=== PATIENT | female | born 1940 | race Caucasian/White ===

== ENCOUNTER → 2016-02-29 | Outpatient (CLI) | payer OTHER, MEDICARE ==
[~2016-02-29] MED LIST: ACET-1138 PO; ACET1TAB84 PO; ASPEC81 PO; ASPI81TA28 PO; FRRG PO; LEVO125T72 PO; OMEG10007 PO; OXYSR10 PO; PRLSR20 PO; RXC5 PO; SALI1SPR15 NAE; SIMV40TA2 PO; VALS160T58 PO
[2016-02-29 13:48] LABS: BASO % 0.5 %; BASO ABS # 0.02 K/uL (0-0.2); COMPLETE YES; HEMATOCRIT 41.1 % (37-47); IG% 0.2 %; LYMPH % 29.3 %; LYMPH ABS # 1.18 K/uL (1.2-3.4); MEAN CELL VOLUME 89.2 fL (80-100); MEAN CORPUSCULAR HEMOGLOBIN 30.2 pg (25-34); MEAN CORPUSCULAR HGB CONC 33.8 g/dl (32-36); MEAN PLATELET VOLUME 9.5 fL (7.4-10.4); MONO % 8.4 %; NEUT % 57.6 %; PLATELET COUNT 162 K/uL (130-400); RED BLOOD COUNT 4.61 M/uL (4.2-5.4); WHITE BLOOD COUNT 4.03 K/uL (4.8-10.8)
[2016-02-29 14:01] LABS: URINE APPEARANCE CLOUDY (CLEAR); URINE BILIRUBIN NEG (NEG); URINE COLOR DK YELLOW; URINE EPITHELIAL CELL AUTO >30 /lpf (0-5); URINE NITRITE NEG (NEG); URINE PH 6.5 (4.5-7.5); URINE SPECIFIC GRAVITY 1.026 (1.000-1.030); UROBILINOGEN NEG (NEG)
[2016-02-29 14:09] LABS: MANUAL MICROSCOPIC REQUIRED? NO; REVIEW REQ? YES
[2016-02-29 14:18] LABS: ESTIMATED AVERAGE GLUCOSE 117 mg/dl; HA1C FLAG Normal (Normal)
[2016-02-29 14:19] LABS: URINE MUCUS PRESENT (NONE PRSENT)
[2016-02-29 14:20] LABS: ALT/SGPT 24 U/L (12-78); AST/SGOT 9 U/L (15-37); BLOOD UREA NITROGEN 13 mg/dl (7-18); BUN/CREATININE RATIO 17.5 (10-20); CALCIUM 9.2 mg/dl (8.5-10.1); CARBON DIOXIDE 28 mmol/L (21-32); CHLORIDE 104 mmol/L (98-107); CREATININE 0.73 mg/dl (0.60-1.20); GLUCOSE 93 mg/dl (70-99); POTASSIUM 3.8 mmol/L (3.5-5.1); SODIUM 141 mmol/L (136-145)
[2016-02-29 14:33] LABS: CHOLESTEROL 198 mg/dl (0-200); CHOLESTEROL/HDL RATIO 2.9; HDL CHOLESTEROL 69 mg/dl; LDL CHOLESTEROL CALCULATED 94 mg/dl; TRIGLYCERIDES 175 mg/dl (0-150); VERY LOW DENSITY LIPOPROT CALC 35 mg/dl
--- NOTE | 2016-03-04 13:14 | CODING QUERY MEDICAL NECESSITY ---
SUPPORTING DIAGNOSIS NEEDED A supporting diagnosis is required for the test/procedure performed on this patient in order for us to be reimbursed by the patient's insurance. Please provide a supporting diagnosis for the following test/procedure listed below next to the test name along with your signature. *If there is no additional diagnosis for this patient that would support the following test/procedure please document that below next to the test/procedure. Test(s)/Procedure(s) that require a supporting diagnosis: DOS 02/28 * Hba1c DIAGNOSIS: Provider Signature: Date: Thank you Lakshmi Acuña Health Information Management Once completed, please kindly fax back to [phone] For questions please call [phone]
== END | disposition home or self-care (01) ==
LOC: C.LABBC 10:21
PROVIDERS: ATTEND Internal Medicine
DX: E78.00 Pure hypercholesterolemia, unspecified (principal); R73.9 Hyperglycemia, unspecified

== ENCOUNTER 2016-06-19 09:18 | Inpatient (IN) | payer OTHER, MEDICARE ==
[2016-05-14 13:28] VITALS: BMI 37.0
--- NOTE | 2016-05-14 14:04 | PAT Medication Instructions ---
Service Date May 14, 2016. Current Home Medication List Acetaminophen (Tylenol Arthritis Ext Rel), 1,300 MG PO TID PRN for RN Aspirin (Aspirin Ec), 81 MG PO QAM Fish Oil ([place]-3), 1 CAP PO TID Levothyroxine Sodium (Synthroid), 125 MCG PO QAM Omeprazole (Prilosec), 20 MG PO QAM Saline (Saline Nasal [place] ), 1-2 SPRY BERNARDA HS PRN for RN Simvastatin (Zocor), 40 MG PO HS Valsartan/Hctz (Diovan Hct 160MG/12.5MG), 1 TAB PO QAM Medication Instructions For Your Scheduled Surgery - Hold the following medications 2 weeks prior to surgery: Fish Oil ([place]-3), 1 CAP PO TID - Hold the following medications the morning of surgery: Valsartan/Hctz (Diovan Hct 160MG/12.5MG), 1 TAB PO QAM - Take the following medications the morning of surgery with a sip of water: Levothyroxine Sodium (Synthroid), 125 MCG PO QAM Omeprazole (Prilosec), 20 MG PO QAM Acetaminophen (Tylenol Arthritis Ext Rel), 1,300 MG PO TID PRN for RN Aspirin (Aspirin Ec), 81 MG PO QAM - Take the following medications as scheduled the night before surgery: Simvastatin (Zocor), 40 MG PO HS Saline (Saline Nasal [place] ), 1-2 SPRY BERNARDA HS PRN for RN Acetaminophen (Tylenol Arthritis Ext Rel), 1,300 MG PO TID PRN for RN If you have any questions please call us at [phone] or [phone] ( Faustina) or [phone]
[2016-05-14 15:05] LABS: BASO % 0.6 %; BASO ABS # 0.03 K/uL (0-0.2); COMPLETE YES; EOS % 1.7 %; HEMATOCRIT 38.3 % (37-47); IG% 0.2 %; LYMPH % 31.5 %; LYMPH ABS # 1.65 K/uL (1.2-3.4); MEAN CELL VOLUME 90.8 fL (80-100); MEAN CORPUSCULAR HGB CONC 34.2 g/dl (32-36); MEAN PLATELET VOLUME 9.5 fL (7.4-10.4); MONO % 5.2 %; NEUT % 60.8 %; PLATELET COUNT 152 K/uL (130-400); RED BLOOD COUNT 4.22 M/uL (4.2-5.4); WHITE BLOOD COUNT 5.23 K/uL (4.8-10.8)
--- NOTE | 2016-05-14 15:06 | DIAGNOSTIC IMAGING REPORT ---
CHEST PREADMISSION(PA/LAT) CLINICAL HISTORY: PAT preoperative evaluation COMPARISON STUDY: No previous studies for comparison. FINDINGS: The bones soft tissues and hemidiaphragms are normal. The cardiomediastinal silhouette is normal. The lungs are clear. The pulmonary vasculature is normal. IMPRESSION: Negative chest. Electronically signed by: Los Porter M.D. 05/14/2016 3:04 PM Dictated Date/Time: 05/14/2016 3:03 PM
[2016-05-14 15:14] LABS: PROTHROMBIN TIME (PATIENT) 10.3 SECONDS (9.0-12.0)
[2016-05-14 15:26] LABS: BUN/CREATININE RATIO 25.8 (10-20); CALCIUM 9.3 mg/dl (8.5-10.1); CREATININE 0.73 mg/dl (0.60-1.20); POTASSIUM 3.7 mmol/L (3.5-5.1)
[2016-05-14 15:29] LABS: URINE APPEARANCE CLEAR (CLEAR); URINE BILIRUBIN NEG (NEG); URINE COLOR YELLOW; URINE EPITHELIAL CELL AUTO >30 /lpf (0-5); URINE NITRITE NEG (NEG); URINE SPECIFIC GRAVITY 1.032 (1.000-1.030); UROBILINOGEN NEG (NEG); ZZUR CULT IF INDIC CLEAN CATCH NO
[2016-05-14 15:35] LABS: MANUAL MICROSCOPIC REQUIRED? NO; REVIEW REQ? NO
[2016-05-15 06:13] LABS: ESTIMATED AVERAGE GLUCOSE 123 mg/dl; HA1C FLAG Normal (Normal)
--- NOTE | 2016-06-18 20:04 | HISTORY & PHYSICAL EXAMINATION ---
DATE OF ADMISSION: 06/19/2016 CHIEF COMPLAINT: Chronic right knee pain. HISTORY OF PRESENT ILLNESS: This is a 75-year-old female patient of Dr. Perry, complaining of chronic right knee pain, longstanding, now progressively getting worse. The patient has been diagnosed with end-stage osteoarthritis per clinical and radiographic exams. The patient has failed conservative treatment including anti-inflammatories, intraarticular injections, and the use of a wrap as needed. The patient has increased pain with weightbearing activities and her pain does interfere with her activities of daily living. PAST MEDICAL HISTORY: Hypertension, hypercholesterolemia, hypothyroidism, osteoarthritis, acid reflux, hiatal hernia. SOCIAL HISTORY: Nonsmoker, nondrinker. SURGICAL HISTORY: Hysterectomy, cholecystectomy, hernia repair, left knee meniscal repair, both cataracts. FAMILY HISTORY: Noncontributory. REVIEW OF SYSTEMS: The patient complains of chronic right knee pain. Otherwise, denies any shortness of breath, chest pain, nausea, vomiting or any other joint complaints. MEDICATIONS: Omeprazole 20 mg daily, valsartan 160 mg/hydrochlorothiazide 12.5 mg daily, aspirin 81 mg daily, Tylenol Arthritis 650 mg every 12 hours p.r.n., Synthroid 125 mcg daily, simvastatin 40 mg daily, fish oil daily. ALLERGIES: No known drug allergies. PHYSICAL EXAMINATION: GENERAL: Well-developed, well-nourished 75-year-old female in no acute distress. She is alert and oriented x3 and pleasant. HEENT: Normocephalic, atraumatic. Extraocular motions are intact. Pupils are equal and reactive to light. HEART: Regular rate and rhythm. No murmurs are appreciated. LUNGS: Clear. ABDOMEN: Soft and nontender, bowel sounds present. EXTREMITIES: Right knee reveals range of motion of 0-125 degrees with a varus deformity. She has a mild effusion with 5/5 strength. She has medial joint line tenderness. NEUROLOGIC: Neurovascularly, she is intact in her right lower extremity. DIAGNOSES: 1. Right knee end-stage osteoarthritis. 2. Hypertension. 3. Hypercholesterolemia. 4. Hypothyroidism. 5. Osteoarthritis. 6. Acid reflux. 7. Hiatal hernia. 8. Obesity. PLAN: The patient was advised of her diagnosis. Indications, risks, benefits, and postop course have all been reviewed. The patient wished to proceed with right total knee arthroplasty. Necessary consent forms, preoperative testing and clearances will be obtained.
[2016-06-19] VITALS (9 sets, daily range): BP systolic 124–150; BP diastolic 75–92; PULSE 72–94; TEMP 36.3–36.8; O2SAT 93–100; Ht 167.6 cm; Wt 105.6 kg
[~2016-06-19] VITALS: Ht 167.6 cm; Wt 105.6 kg
[~2016-06-19 09:18] MED LIST changes: -ACET-1138 PO; +ACETAMINOPHEN 500 MG TAB PO SCH; -ASPEC81 PO; +BUPIVACAINE 0.5 % 5 MG/1 ML PF 10ML VIAL ONE; +CEFAZOLIN 2000 MG/60 ML D5W 60 ML IV SCH; +CeleBREX 200 MG CAP PO SCH; +DEXAMETHASONE 4 MG TAB PO SCH; +FAMOTIDINE 20 MG TAB PO SCH; -FRRG PO; +GABAPENTIN 300 MG CAP PO SCH; +LACTATED RINGER'S 1000ML 1,000 ML IV SCH; +LACTATED RINGER'S 1000ML 500 ML IV ONE; +LACTATED RINGER'S 1000ML IV SCH; +METOCLOPRAMIDE HCL 10 MG TAB PO SCH; -OXYSR10 PO; +ROPIVACAINE 5MG/ML 30 ML 150 MG, BUPIVACAINE/EPINEPHR 0.5% MPF 30 ML, KETOROLAC TROMETH... INFIL SCH; -RXC5 PO
[2016-06-19] MEDS ORDERED: MIDAZOLAM HCL 1 MG/ML 2ML VIAL ONE ×2 (09:36)
--- NOTE | 2016-06-19 10:19 | History & Physical Bridge Note ---
H&P Re-Evaluation Bridge Note: I have examined the patient, reviewed the History & Physical and in the interval since the performance of the History & Physical I have noted the following changes of clinical significance: No changes noted
[2016-06-19] MEDS ORDERED: ATROPINE SULFATE 0.1 MG/ML 5ML SYR IV PRN (10:45)
[2016-06-19] MEDS ORDERED: EpHEDrine SULFATE INJ 50 MG/ML AMP IV PRN (10:45)
[2016-06-19] MEDS ORDERED: ONDANSETRON INJ 2 MG/ML 2 ML VIAL IV PRN ×2 (10:45→13:30)
[2016-06-19] MEDS ORDERED: FENTANYL CITRATE INJ 50 MCG/1 ML 2 ML VIAL IV PRN (10:45)
[2016-06-19] MEDS ORDERED: POVIDONE-IODINE OP SOLN 30 ML BTL ONE (11:11)
[2016-06-19] MEDS ORDERED: ORTHO JOINT ANESTHETIC ONE (11:11)
[2016-06-19] MEDS ORDERED: BACITRACIN 50000 UNIT VIAL ONE (11:11)
[2016-06-19] MEDS ORDERED: PROPOFOL IV EMULSION 10 MG/ML 20 ML VIAL IV ONE (11:46)
--- NOTE | 2016-06-19 12:59 | [facility] Operative Report ---
Operative Report Operative Date Jun 19, 2016. Pre-Operative Diagnosis Right knee end stage Osteoarthritis Post-Operative Diagnosis same Procedure(s) Performed right TKA Surgeon Dr. Rdz Summer Associate Surgeon(s) Sin Yang PA-C Estimated Blood Loss 5 cc Findings varus ,grade 4 medial compt. Specimens A: Right knee bone and tissue Drains 2 hemovac Anesthesia spinal and regional block and orthomix Complication(s) None Disposition Recovery Room / PACU Indications end stage bilateral kne djd I attest to the content of the Intraoperative Record and any orders documented therein. Any exceptions are noted below.
[2016-06-19] MEDS ORDERED: BISACODYL 10 MG SUPP PR PRN (13:30)
[2016-06-19] MEDS ORDERED: MAGNESIUM HYDROXIDE SUSP 30 ML UDC PO PRN (13:30)
[2016-06-19] MEDS ORDERED: SODIUM CHLORIDE 0.65% NA SOLN 45 ML (OCEAN) NAE PRN (13:30)
[2016-06-19] MEDS ORDERED: ALUMINUM/MAGNESIUM/SIMETH (MAALOX MAX) 30 ML UDC PO PRN (13:30)
[2016-06-19] MEDS ORDERED: OXYCODONE HCL IR 5 MG TAB (IMMEDIATE RELEASE) PO PRN (13:30)
[2016-06-19] MEDS ORDERED: MoRPHine SULFATE 2 MG/ML CARP IV PRN (13:30)
--- NOTE | 2016-06-19 13:47 | DIAGNOSTIC IMAGING REPORT ---
TWO VIEWS RIGHT KNEE CLINICAL HISTORY: Postoperative examination. FINDINGS: AP and crosstable lateral portable views of the right knee are obtained. A right knee arthroplasty is in near anatomic alignment. There has been undersurface remodeling of the patella. No acute fracture is seen. There are expected postoperative changes around the knee including skin clips, a surgical drain, soft tissue edema, and subcutaneous gas. IMPRESSION: Expected postoperative changes status post right knee arthroplasty. No acute fracture is seen. Electronically signed by: Ilia Suarez M.D. 06/19/2016 1:45 PM Dictated Date/Time: 06/19/2016 1:45 PM
--- NOTE | 2016-06-19 13:55 | Anesthesiology Progress Note ---
Anesthesia Post Op Note Date & Time Jun 19, 2016 at 13:54 Vital Signs Pain Intensity: 0 Vital Signs Past 12 Hours Date Time Temp Pulse Resp B/P Pulse Ox O2 Delivery O2 Flow Rate FiO2 06/19/16 13:45 83 16 127/72 100 Nasal Cannula 2 06/19/16 13:35 78 16 134/74 100 Nasal Cannula 2 06/19/16 13:25 36.4 85 16 128/75 100 Mask 10 06/19/16 09:42 36.8 79 20 150/88 98 Room Air Notes Mental Status: alert / awake / arousable, participated in evaluation Pt Amnestic to Procedure: Yes Nausea / Vomiting: adequately controlled Pain: adequately controlled Airway Patency, RR, SpO2: stable & adequate BP & HR: stable & adequate Hydration State: stable & adequate Neuraxial Anesthesia: was administered, sensory block is resolving Anesthetic Complications: no major complications apparent
[2016-06-19] MEDS: TRANEXAMIC ACID INJ 1,000 MG in SODIUM CHLORIDE 0.9% 100ML 100 ML IV SCH ×2 (14:59→20:00)
[2016-06-19] MEDS ORDERED: MoRPHine SULFATE 10 MG/ML CARP/VIAL IV PRN (15:15)
[2016-06-19] MEDS ORDERED: MoRPHine SULFATE 4 MG/ML 1 ML CARP\\VIAL IV PRN (15:15)
[2016-06-19] MEDS: SODIUM CHLORIDE 0.9% 1000ML 1,000 ML IV SCH ×2 (16:27→23:23)
--- NOTE | 2016-06-19 16:39 | OPERATIVE REPORT ---
DATE OF OPERATION: 06/19/2016 INDICATION FOR PROCEDURE: The patient is a 75-year-old female who presents with severe bilateral knee arthritis. She had previous left partial meniscectomy in the past. Right knee, she has had no surgery, but the right knee is more painful than her left, although she is [id number] in the medial compartment both knees, her right knee arthritis is not as severe but more painful at this time. PREOPERATIVE DIAGNOSIS: End-stage osteoarthritis, right knee, obesity, BMI 37. POSTOPERATIVE DIAGNOSIS: Same. PROCEDURE: Right total knee arthroplasty. SURGEON: Dr. Rdz. BODY MAKER: Sin Yang PA-C. ANESTHESIA: Spinal IV sedation, regional block and Orthomix. OPERATION AND FINDINGS: OPERATIVE PROCEDURE: The patient was taken to the operating room and anesthetized under spinal anesthesia and regional block. She was placed supine on the operating room table. Pneumatic tourniquet was placed about her obese upper right thigh. Her right lower extremity was prepped and draped in the usual sterile fashion using ChloraPrep. The leg was then elevated, exsanguinated with Esmarch bandage. Pneumatic tourniquet was raised to 350 mmHg. Anterior incision made across the right knee in a longitudinal fashion. Skin was incised sharply. Subcutaneous flaps were elevated. Incision was made through the medial retinaculum and extended up in the mid third of the quadriceps tendon extending down to the medial tibial tubercle. Intra-articular findings demonstrated that she had tricompartmental DJD but bone on bone medial compartment and degenerative medial meniscus tear. Intact cruciate ligaments. I used the Soto \T\ Nephew Journey 2.0, total knee arthroplasty system using [employer] MRI templating for femur sized for 6 and tibia for a 5. The knee was then exposed by excising the meniscal remnants, excising the cruciate ligaments, doing releases around the proximal medial tibial plateau and posterior medial tibial plateau to balance the ligaments. The infrapatellar fat pad was excised. The fat pad over the anterior femur excised for placement of the component in that area. The lateral synovial bands were released. The femur was then exposed. The custom femoral cutting block was pinned in position and the distal femoral cut was made. Then the 5-1 cutting block was used for anterior, posterior and chamfer cuts. The knee was then extended and then a subperiosteal peel lateral release was performed around the patella. Patella width was measured and width was reproduced using a freehand cut technique and a 35 patella component. The excess lateral facet of patella was beveled off to prevent any impingement. Drill holes for the pegs were made. The tibia was then subluxed and the custom tibial cutting block was pinned in position and the proximal tibial cut was made. Lamina supervisor inspection room was used to assess ligamentous balance in flexion and extension and ligaments were balanced. Then the tibia was resubluxed and the tibial trial size 5 was externally rotated maximally. This was pinned in position. The punch for the stem was used. Then the 6 femoral trial was inserted, centered and the notch cutting devices were used. A collet was placed. I placed a 10 poly trial which gave balanced ligaments through full range of motion and the patella trial placed and the patella did have some slight lateral tracking that I felt required a limited lateral release, so we released the upper lateral retinaculum, IT bands to the mid lateral retinaculum area until the kneecap centered perfectly with knee in flexion. Then, the trials were removed. The Orthomix was injected per protocol. The knee was copiously irrigated with pulsatile lavage antibiotic solution and bacitracin. The final components were then cemented with Simplex cement. Final components were the Journey 2.0 Oxinium right size 6 femoral component, the tibia size 5 primary component. The 10 mm poly posterior stabilized polyethylene and the 35 patella. While the cement cured, we did a Betadine soak per protocol. The knee was again copiously irrigated with antibiotic solution and bacitracin. Two drains were brought out laterally and connected to a Hemovac. The quadriceps tendon and medial retinaculum were closed with interrupted [id number] #1 Vicryl sutures. The knee was taken through full range of motion and repair was secure. The subcutaneous tissues were injected with more Orthomix. The subcutaneous tissues were closed with interrupted 2-0 Vicryl sutures. The skin was closed with brandy. Sterile dressing was applied and we did place a superficial wound VAC on due to her obesity. Sin Yang PA-C was my assistant professor of chemistry. He functioned as assistant professor of chemistry for the entire procedure. He assisted in patient positioning, prepping, draping, leg positioning, soft tissue retraction, instrument management and performed the subcutaneous, fascial and skin closures and applied the wound VAC. He will participate in postoperative care of the patient. I attest to the content of the Intraoperative Record and any orders documented therein. Any exceptio ns are noted below.
[2016-06-19] MEDS: FERROUS GLUCONATE 324 MG TAB PO SCH (17:31)
[2016-06-19] MEDS: CEFAZOLIN IV 2,000 MG in DEXTROSE 5% 50ML 50 ML IV SCH (19:32)
--- NOTE | 2016-06-19 20:19 | Medical Consult ---
Consultation Date of Consultation: Jun 19, 2016. Attending Physician: Nacho Rdz M.D. Reason for Consultation: Medical Management History of Present Illness 75 y/o F who was admitted earlier today s/p R TKA. Doing well post-op. No pain related to this and has been OOB to bathroom, etc. Ate without issue. No SOB or chest pain. Pt denies fever, abd pain, n/v/c/d, LE pain or swelling. ROS as noted above, otherwise neg. Past Medical/Surgical History HTN HLD Hypothyroid GERD with Hiatal hernia OA Social History Smoking Status: Never Smoker Alcohol Use: none Allergies Coded Allergies: No Known Allergies (Verified , 06/19/16) Current Inpatient Medications Current Inpatient Medications Medications (Trade) Dose Ordered Sig/Maggie Route Start Time Stop Time Status Last Admin Dose Admin Levothyroxine Sodium (Synthroid Tab) 125 mcg DAILYBB PO 06/20/16 06:00 07/20/16 05:59 Sodium Chloride ([place] Nasal [place]) 2 sprays HS PRN BERNARDA 06/19/16 13:30 07/19/16 13:29 Simvastatin (Zocor Tab) 40 mg HS PO 06/19/16 21:00 07/19/16 20:59 Valsartan (Diovan Tab) 160 mg QAM PO 06/20/16 09:00 07/20/16 08:59 Morphine Sulfate 2 mg 2 mg Q4HWA PRN IV 06/19/16 13:30 07/03/16 13:29 Sodium Chloride 1,000 ml @ 100 mls/hr Q10H IV 06/19/16 13:26 06/20/16 13:25 06/19/16 16:27 100 MLS/HR Cefazolin Sodium/ Dextrose (Ancef Iv/D5 50ml) 60 ml @ 100 mls/hr Q8H IV 06/19/16 20:00 06/20/16 04:35 06/19/16 19:32 100 MLS/HR Oxycodone HCl (Roxicodone Immediate Rel Tab) 1 TABLET FOR PAIN RATING... Q4H PRN PO 06/19/16 13:30 07/03/16 13:29 Oxycodone HCl (Oxycontin Tab) 10 mg Q12 PO 06/19/16 21:00 5/10/17 20:59 Acetaminophen (Tylenol Tab) 1,000 mg Q8H PO 06/19/16 22:00 07/19/16 13:29 Magnesium Hydroxide (Milk Of Magnesia Susp) 30 ml Q6H PRN PO 06/19/16 13:30 07/19/16 13:29 Bisacodyl (Dulcolax Supp) 10 mg DAILY PRN GA 06/19/16 13:30 07/19/16 13:29 Senna (Senokot Tab) 17.2 mg HS PO 06/19/16 21:00 07/19/16 20:59 Docusate Sodium (coLACE CAP) 100 mg BID PO 06/19/16 21:00 07/19/16 20:59 Al Hydrox/Mg Hydrox/Simethicone (Maalox Max Susp) 15 ml Q4H PRN PO 06/19/16 13:30 07/19/16 13:29 Multivitamins (Multivitamin Tab) 1 tab QAM PO 06/20/16 09:00 07/20/16 08:59 Ondansetron HCl (Zofran Inj) 4 mg Q6H PRN IV 06/19/16 13:30 07/19/16 13:29 Ferrous Gluconate (Ferrous Gluconate Tab) 324 mg TIDM PO 06/19/16 17:45 07/19/16 17:59 06/19/16 17:31 324 MG Pantoprazole Sodium (Protonix Tab) 40 mg QAM PO 06/20/16 09:00 07/20/16 08:59 Aspirin (Ecotrin Tab) 81 mg BID PO 06/19/16 21:00 07/19/16 20:59 Morphine Sulfate (MoRPHine SULFATE INJ) 4 mg Q4HWA PRN IV 06/19/16 15:15 07/03/16 15:14 Morphine Sulfate (MoRPHine SULFATE INJ) 6 mg Q4HWA PRN IV 06/19/16 15:15 07/03/16 15:14 Physical Exam Date Time Temp Pulse Resp B/P Pulse Ox O2 Delivery O2 Flow Rate FiO2 06/19/16 19:00 36.5 77 18 136/79 93 Nasal Cannula 3.0 06/19/16 17:25 36.3 94 18 131/77 99 Nasal Cannula 3.0 06/19/16 16:26 36.3 74 18 127/81 94 Nasal Cannula 3.0 06/19/16 15:39 36.3 72 16 142/92 95 Nasal Cannula 3.0 06/19/16 15:25 36.4 82 18 148/83 97 Nasal Cannula 2.0 06/19/16 14:55 36.6 79 20 149/83 100 Nasal Cannula 2.0 06/19/16 14:25 97 Nasal Cannula 2.0 06/19/16 14:25 36.4 83 20 124/75 97 Nasal Cannula 2.0 06/19/16 14:25 97 Nasal Cannula 2.0 06/19/16 14:05 36.2 94 16 140/67 100 Nasal Cannula 2 06/19/16 13:55 77 16 124/75 100 Nasal Cannula 2 06/19/16 13:45 83 16 127/72 100 Nasal Cannula 2 06/19/16 13:35 78 16 134/74 100 Nasal Cannula 2 06/19/16 13:25 36.4 85 16 128/75 100 Mask 10 06/19/16 09:42 36.8 79 20 150/88 98 Room Air General Appearance: WD/WN, no apparent distress Head: normocephalic, atraumatic Respiratory/Chest: normal breath sounds, no respiratory distress Cardiovascular: regular rate, rhythm, no edema Abdomen/GI: non tender, soft Extremities/Musculoskelatal: no calf tenderness, no pedal edema Neurologic/Psych: alert, normal mood/affect, oriented x 3 Skin: normal color, warm/dry Assessment & Plan 75 y/o M s/p R TKA R TKA: as per ortho HTN: Stable, monitor on home meds Elevated A1c: states hx of same in the past, has been monitoring with Dr. Menjivar Never with full DM Hoping to return to more activity s/p R TKA healing GERD, hypothyroid, HLD: stable, continue home meds
[2016-06-19] MEDS: ACETAMINOPHEN 500 MG TAB PO SCH (21:13)
[2016-06-19] MEDS: ASPIRIN 81 MG ECTAB PO SCH (21:13)
[2016-06-19] MEDS: SENNA 8.6 MG TAB PO SCH (21:13)
[2016-06-19] MEDS: DOCUSATE SODIUM 100 MG CAP PO SCH (21:13)
[2016-06-19] MEDS: OXYCODONE HCL 10 MG TABCR (OXYCONTIN) PO SCH (21:13)
[2016-06-19] MEDS: SIMVASTATIN 40 MG TAB PO SCH (21:13)
[2016-06-20 03:35] VITALS: BP 126/77; PULSE 95; TEMP 36.6; O2SAT 96
[2016-06-20] MEDS: CEFAZOLIN IV 2,000 MG in DEXTROSE 5% 50ML 50 ML IV SCH (04:16)
[2016-06-20] MEDS: LEVOTHYROXINE 125 MCG TAB PO SCH (05:49)
[2016-06-20] MEDS: ACETAMINOPHEN 500 MG TAB PO SCH ×3 (05:50→21:14)
[2016-06-20] MEDS ORDERED: TRANEXAMIC ACID INJ 1,000 MG in SODIUM CHLORIDE 0.9% 100ML 100 ML IV SCH (06:00)
[2016-06-20 06:34] LABS: HEMATOCRIT 28.5 % (37-47); MEAN CELL VOLUME 91.3 fL (80-100); MEAN CORPUSCULAR HEMOGLOBIN 30.4 pg (25-34); MEAN CORPUSCULAR HGB CONC 33.3 g/dl (32-36); MEAN PLATELET VOLUME 9.2 fL (7.4-10.4); PLATELET COUNT 133 K/uL (130-400); RED BLOOD COUNT 3.12 M/uL (4.2-5.4); WHITE BLOOD COUNT 7.77 K/uL (4.8-10.8)
[2016-06-20 07:01] LABS: BUN/CREATININE RATIO 19.2 (10-20); CALCIUM 8.4 mg/dl (8.5-10.1); CREATININE 0.71 mg/dl (0.60-1.20); POTASSIUM 3.6 mmol/L (3.5-5.1)
[2016-06-20 07:04] VITALS: BP 130/84; PULSE 90; TEMP 36.6; O2SAT 97
--- NOTE | 2016-06-20 07:39 | Anesthesiology Progress Note ---
Anesthesia Post Op Note Date & Time Jun 20, 2016 at 07:38 Vital Signs Pain Intensity: 0 Vital Signs Past 12 Hours Date Time Temp Pulse Resp B/P Pulse Ox O2 Delivery O2 Flow Rate FiO2 06/20/16 07:04 36.6 90 16 130/84 97 Room Air 06/20/16 03:35 36.6 95 16 126/77 96 Room Air 06/19/16 23:05 36.4 80 14 127/83 93 Room Air 06/19/16 19:45 Room Air Notes Mental Status: alert / awake / arousable, participated in evaluation Pt Amnestic to Procedure: Yes Nausea / Vomiting: adequately controlled Pain: adequately controlled Airway Patency, RR, SpO2: stable & adequate BP & HR: stable & adequate Hydration State: stable & adequate Neuraxial Anesthesia: was administered, sensory block resolved Anesthetic Complications: no major complications apparent
--- NOTE | 2016-06-20 08:12 | Hospitalist Progress Note ---
Hospitalist Progress Note Date of Service Jun 20, 2016. Subjective Pt evaluation today including: conversation w/ patient, physical exam, chart review, lab review, review of studies, review of inpatient medication list Voiding: no voiding problems, no incontinence Patient states she is feeling well. Pain is well controlled. She is eating and drinking OK. No flatus/BM postop. Patient denies any fever, chills, sweats, lightheadedness, dizziness, vision changes, CP, palpitations, edema, SOB, wheezing, cough, abdominal pain, nausea, vomiting, diarrhea, urinary symptoms, melena, numbness/tingling, weakness, muscle/joint pain, anxiety/depression, active bleeding, or new skin discoloration/changes. Medications Current Inpatient Medications Medications (Trade) Dose Ordered Sig/Maggie Route Start Time Stop Time Status Last Admin Dose Admin Levothyroxine Sodium (Synthroid Tab) 125 mcg DAILYBB PO 06/20/16 06:00 07/20/16 05:59 06/20/16 05:49 125 MCG Sodium Chloride ([place] Nasal [place]) 2 sprays HS PRN BERNARDA 06/19/16 13:30 07/19/16 13:29 06/19/16 23:25 2 SPRAYS Simvastatin (Zocor Tab) 40 mg HS PO 06/19/16 21:00 07/19/16 20:59 06/19/16 21:13 40 MG Valsartan (Diovan Tab) 160 mg QAM PO 06/20/16 09:00 07/20/16 08:59 06/20/16 08:32 160 MG Morphine Sulfate 2 mg 2 mg Q4HWA PRN IV 06/19/16 13:30 07/03/16 13:29 Sodium Chloride (Nss 1000ml) 1,000 ml @ 100 mls/hr Q10H IV 06/19/16 13:26 06/20/16 13:25 06/20/16 08:37 100 MLS/HR Oxycodone HCl (Roxicodone Immediate Rel Tab) 1 TABLET FOR PAIN RATING... Q4H PRN PO 06/19/16 13:30 07/03/16 13:29 Oxycodone HCl (Oxycontin Tab) 10 mg Q12 PO 06/19/16 21:00 07/03/16 20:59 06/20/16 08:36 10 MG Acetaminophen (Tylenol Tab) 1,000 mg Q8H PO 06/19/16 22:00 07/19/16 13:29 06/20/16 05:50 1,000 MG Magnesium Hydroxide (Milk Of Magnesia Susp) 30 ml Q6H PRN PO 06/19/16 13:30 07/19/16 13:29 Bisacodyl (Dulcolax Supp) 10 mg DAILY PRN [place] 06/19/16 13:30 07/19/16 13:29 Senna (Senokot Tab) 17.2 mg HS PO 06/19/16 21:00 07/19/16 20:59 06/19/16 21:13 17.2 MG Docusate Sodium (coLACE CAP) 100 mg BID PO 06/19/16 21:00 07/19/16 20:59 06/20/16 08:31 100 MG Al Hydrox/Mg Hydrox/Simethicone (Maalox Max Susp) 15 ml Q4H PRN PO 06/19/16 13:30 07/19/16 13:29 Multivitamins (Multivitamin Tab) 1 tab QAM PO 06/20/16 09:00 07/20/16 08:59 06/20/16 08:31 1 TAB Ondansetron HCl (Zofran Inj) 4 mg Q6H PRN IV 06/19/16 13:30 07/19/16 13:29 Ferrous Gluconate (Ferrous Gluconate Tab) 324 mg TIDM PO 06/19/16 17:45 07/19/16 17:59 06/20/16 08:31 324 MG Pantoprazole Sodium (Protonix Tab) 40 mg QAM PO 06/20/16 09:00 07/20/16 08:59 Aspirin (Ecotrin Tab) 81 mg BID PO 06/19/16 21:00 07/19/16 20:59 06/20/16 08:31 81 MG Morphine Sulfate (MoRPHine SULFATE INJ) 4 mg Q4HWA PRN IV 06/19/16 15:15 07/03/16 15:14 Morphine Sulfate (MoRPHine SULFATE INJ) 6 mg Q4HWA PRN IV 06/19/16 15:15 07/03/16 15:14 Objective Vital Signs Date Time Temp Pulse Resp B/P Pulse Ox O2 Delivery O2 Flow Rate FiO2 06/20/16 07:15 Room Air 4/27/17 07:04 36.6 90 16 130/84 97 Room Air 06/20/16 03:35 36.6 95 16 126/77 96 Room Air 06/19/16 23:05 36.4 80 14 127/83 93 Room Air 06/19/16 19:45 Room Air 06/19/16 19:00 36.5 77 18 136/79 93 Nasal Cannula 3.0 06/19/16 17:25 36.3 94 18 131/77 99 Nasal Cannula 3.0 06/19/16 16:26 36.3 74 18 127/81 94 Nasal Cannula 3.0 06/19/16 15:39 36.3 72 16 142/92 95 Nasal Cannula 3.0 06/19/16 15:25 36.4 82 18 148/83 97 Nasal Cannula 2.0 06/19/16 14:55 36.6 79 20 149/83 100 Nasal Cannula 2.0 06/19/16 14:25 97 Nasal Cannula 2.0 06/19/16 14:25 36.4 83 20 124/75 97 Nasal Cannula 2.0 06/19/16 14:25 97 Nasal Cannula 2.0 06/19/16 14:05 36.2 94 16 140/67 100 Nasal Cannula 2 06/19/16 13:55 77 16 124/75 100 Nasal Cannula 2 06/19/16 13:45 83 16 127/72 100 Nasal Cannula 2 06/19/16 13:35 78 16 134/74 100 Nasal Cannula 2 06/19/16 13:25 36.4 85 16 128/75 100 Mask 10 06/19/16 09:42 36.8 79 20 150/88 98 Room Air Physical Exam General Appearance: no apparent distress, + obese Eyes: normal inspection, PERRL ENT: hearing grossly normal Neck: supple Respiratory/Chest: lungs clear, no respiratory distress, no accessory muscle use Cardiovascular: regular rate, rhythm Abdomen: normal bowel sounds, non tender, soft Extremities: no pedal edema, no calf tenderness Neurologic/Psychiatric: alert, normal mood/affect, oriented x 3 Skin: normal color, warm/dry, no rash Laboratory Results Last 24 Hours Test 06/20/16 06:05 White Blood Count 7.77 K/uL Red Blood Count 3.12 M/uL Hemoglobin 9.5 g/dL Hematocrit 28.5 % Mean Corpuscular Volume 91.3 fL Mean Corpuscular Hemoglobin 30.4 pg Mean Corpuscular Hemoglobin Concent 33.3 g/dl RDW Standard Deviation 45.3 fL RDW Coefficient of Variation 13.7 % Platelet Count 133 K/uL Mean Platelet Volume 9.2 fL Sodium Level 139 mmol/L Potassium Level 3.6 mmol/L Chloride Level 106 mmol/L Carbon Dioxide Level 27 mmol/L Anion Gap 6.0 mmol/L Blood Urea Nitrogen 14 mg/dl Creatinine 0.71 mg/dl Est Creatinine Clear Calc Drug Dose 86.7 ml/min Estimated GFR () 97.9 Estimated GFR (Non- 84.5 BUN/Creatinine Ratio 19.2 Random Glucose 117 mg/dl Calcium Level 8.4 mg/dl Assessment and Plan 75 y/o female, with PMHx of HTN, HLD, hypothyroidism, GERD w/ hiatal hernia, OA , s/p R TKA on 06/[address] Rdz - PT/OT, pain management, and DVT prophylaxis as per primary team - PRP and CBC -- hgb low at 9.5, likely secondary to operation- continue to monitor -- Continue Ferrous Sulfate supplement placed by ortho HTN: HCTZ/Valsartan 1 tab daily- kidney function OK postop- resume Elevated A1c of 5.9% on 05/14/16: Monitoring with Dr. Menjivar Hypothyroidism: Continue Synthroid 125 mcg daily Hyperlipidemia: Continue Zocor 40 mg daily GERD w/ hiatal hernia: Protonix daily- resume Prilosec at discharge GI Prophylaxis: Maalox PRN, IV Zofran PRN, Colace and/or Milk of Mag PRN DVT prophylaxis: As per primary team Code Status: LEVEL I, FULL Dispo: Discharge as per primary team
--- NOTE | 2016-06-20 08:29 | Orthopedic Progress Note ---
Orthopedic Progress Note Date of Service Jun 20, 2016. Subjective Post OP Day: 1 Reports: feeling well, pain controlled w PO medications, Denies: SOB, calf pain , chest pain, complaints, light headedness, nausea / vomiting Objective calves soft nontender, N/V intact, capillary refill less than 2 sec., dressing C /D/I, A&O x3, toes mobile Wound vac in tact Date Time Temp Pulse Resp B/P Pulse Ox O2 Delivery O2 Flow Rate FiO2 06/20/16 07:15 Room Air 06/20/16 07:04 36.6 90 16 130/84 97 Room Air 06/20/16 03:35 36.6 95 16 126/77 96 Room Air 06/19/16 23:05 36.4 80 14 127/83 93 Room Air 06/19/16 19:45 Room Air 06/19/16 19:00 36.5 77 18 136/79 93 Nasal Cannula 3.0 06/19/16 17:25 36.3 94 18 131/77 99 Nasal Cannula 3.0 06/19/16 16:26 36.3 74 18 127/81 94 Nasal Cannula 3.0 06/19/16 15:39 36.3 72 16 142/92 95 Nasal Cannula 3.0 06/19/16 15:25 36.4 82 18 148/83 97 Nasal Cannula 2.0 06/19/16 14:55 36.6 79 20 149/83 100 Nasal Cannula 2.0 06/19/16 14:25 97 Nasal Cannula 2.0 06/19/16 14:25 36.4 83 20 124/75 97 Nasal Cannula 2.0 06/19/16 14:25 97 Nasal Cannula 2.0 06/19/16 14:05 36.2 94 16 140/67 100 Nasal Cannula 2 06/19/16 13:55 77 16 124/75 100 Nasal Cannula 2 06/19/16 13:45 83 16 127/72 100 Nasal Cannula 2 06/19/16 13:35 78 16 134/74 100 Nasal Cannula 2 06/19/16 13:25 36.4 85 16 128/75 100 Mask 10 06/19/16 09:42 36.8 79 20 150/88 98 Room Air Laboratory Results 24 Hours: Test 06/20/16 06:05 Hematocrit 28.5 % Hemoglobin 9.5 g/dL Assessment & Plan Assessment: POD #1, Right TKA Plan: PT/ OT DVT proph- ASA D/C planning- Home w OPPT Appreciate medicine in put Inhouse Planning Pain Management: Oxycontin, Morphine, PO Tylenol, Oxy IR DVT Prophylaxis: TEDs, SCDs, ASA Discharge Planning Discharge Planning: home with oppt Pain Management: Oxycontin, PO Tylenol, Oxy IR DVT Prophylaxis: TEDs, ASA Therapy: Physical Therapy, Occupational Therapy
[2016-06-20] MEDS: DOCUSATE SODIUM 100 MG CAP PO SCH ×2 (08:31→21:14)
[2016-06-20] MEDS: ASPIRIN 81 MG ECTAB PO SCH ×2 (08:31→21:14)
[2016-06-20] MEDS: FERROUS GLUCONATE 324 MG TAB PO SCH ×3 (08:31→17:55)
[2016-06-20] MEDS: MULTIVITAMIN TAB PO SCH (08:31)
[2016-06-20] MEDS: VALSARTAN 80 MG TAB PO SCH (08:32)
[2016-06-20] MEDS: OXYCODONE HCL 10 MG TABCR (OXYCONTIN) PO SCH ×2 (08:36→21:14)
[2016-06-20] MEDS: SODIUM CHLORIDE 0.9% 1000ML 1,000 ML IV SCH (08:37)
[2016-06-20] MEDS: PANTOprazole SOD 40 MG TAB PO SCH (09:46)
[2016-06-20 11:36] VITALS: BP 130/55; PULSE 97; O2SAT 95
[2016-06-20 11:54] VITALS: BP 114/71; PULSE 90; TEMP 36.7; O2SAT 95
[2016-06-20 15:22] VITALS: BP 116/71; PULSE 95; TEMP 36.5; O2SAT 94
[2016-06-20] MEDS: SIMVASTATIN 40 MG TAB PO SCH (21:50)
[2016-06-20] MEDS: SENNA 8.6 MG TAB PO SCH (21:50)
[2016-06-20 23:15] VITALS: BP 124/68; PULSE 97; TEMP 36.9; O2SAT 96
[2016-06-21 05:22] LABS: HEMATOCRIT 26.6 % (37-47); MEAN CELL VOLUME 91.1 fL (80-100); MEAN CORPUSCULAR HEMOGLOBIN 29.1 pg (25-34); MEAN PLATELET VOLUME 8.4 fL (7.4-10.4); PLATELET COUNT 103 K/uL (130-400); RED BLOOD COUNT 2.92 M/uL (4.2-5.4); WHITE BLOOD COUNT 4.37 K/uL (4.8-10.8)
[2016-06-21] MEDS: ACETAMINOPHEN 500 MG TAB PO SCH (05:56)
[2016-06-21] MEDS: LEVOTHYROXINE 125 MCG TAB PO SCH (05:56)
[2016-06-21 06:27] VITALS: BP 134/77; PULSE 92; TEMP 36.4; O2SAT 94
[2016-06-21 07:27] VITALS: BP 128/78; PULSE 90; TEMP 36.8; O2SAT 95
[2016-06-21 08:00] VITALS: O2SAT 95
[2016-06-21] MEDS: ASPIRIN 81 MG ECTAB PO SCH (08:08)
[2016-06-21] MEDS: OXYCODONE HCL 10 MG TABCR (OXYCONTIN) PO SCH (08:08)
[2016-06-21] MEDS: DOCUSATE SODIUM 100 MG CAP PO SCH (08:08)
[2016-06-21] MEDS: MULTIVITAMIN TAB PO SCH (08:09)
[2016-06-21] MEDS: VALSARTAN 80 MG TAB PO SCH (08:09)
[2016-06-21] MEDS: PANTOprazole SOD 40 MG TAB PO SCH (08:09)
[2016-06-21] MEDS: FERROUS GLUCONATE 324 MG TAB PO SCH (08:09)
--- NOTE | 2016-06-21 08:41 | Orthopedic Progress Note ---
Orthopedic Progress Note Date of Service Jun 21, 2016. Subjective Post OP Day: 2 Reports: feeling well, pain controlled w PO medications, Denies: SOB, calf pain , chest pain, complaints, light headedness, nausea / vomiting Objective calves soft nontender, N/V intact, capillary refill less than 2 sec., dressing C /D/I, A&O x3, toes mobile wound vac in tact. Date Time Temp Pulse Resp B/P Pulse Ox O2 Delivery O2 Flow Rate FiO2 06/21/16 07:27 36.8 90 16 128/78 95 Room Air 06/21/16 06:27 36.4 92 16 134/77 94 Room Air 06/21/16 00:00 Room Air 06/20/16 23:15 36.9 97 16 124/68 96 Room Air 06/20/16 15:25 Room Air 06/20/16 15:22 36.5 95 18 116/71 94 Room Air 06/20/16 11:54 36.7 90 18 114/71 95 Room Air 06/20/16 11:36 97 95 Laboratory Results 24 Hours: Test 06/21/16 05:07 Hematocrit 26.6 % Hemoglobin 8.5 g/dL Assessment & Plan Assessment: POD #2, Right TKA Plan: PT/ OT DVT proph- ASA D/C planning- Home w OPPT today Appreciate medicine in put Inhouse Planning Pain Management: Oxycontin, Morphine, PO Tylenol, Oxy IR DVT Prophylaxis: TEDs, SCDs, ASA Discharge Planning Discharge Planning: home with oppt Pain Management: Oxycontin, PO Tylenol, Oxy IR DVT Prophylaxis: TEDs, ASA Therapy: Physical Therapy, Occupational Therapy
[2016-06-21] MEDS ORDERED: OXYSR10 PO (08:45)
[2016-06-21] MEDS ORDERED: FRRG PO (08:45)
[2016-06-21] MEDS ORDERED: ACET-1138 PO (08:45)
[2016-06-21] MEDS ORDERED: RXC5 PO (08:45)
[2016-06-21] MEDS ORDERED: ASPEC81 PO (08:45)
--- NOTE | 2016-06-21 08:47 | Discharge Instructions ---
Discharge Instructions Date of Service Jun 21, 2016. Admission Reason for Admission: Right Knee Degenerative Joint Disease Discharge Discharge Diagnosis / Problem: Right TKA Discharge Goals Goal(s): Improve function Activity Recommendations Activity Limitations: as noted below . Instructions / Follow-Up Instructions / Follow-Up ACTIVITY RECOMMENDATIONS: SELF CARE INSTRUCTIONS AFTER TOTAL KNEE REPLACEMENT A. You may need to continue a physical therapy program after discharge from the hospital. There are several options available to you. Your doctor will assist you in selecting the best one for you. 1. An out-patient facility 2 to 3 times a week for therapy or home therapy. 2. Continue working on all exercises taught to you in the hospital. Your goals should be to increase bending of your knee to 90 degrees and beyond and to fully straighten your knee. B. You may progress at your own pace from walking with a walker or crutches to a cane; then to no assistive devices. C. Make walking a part of your daily routine. Be up as much as comfortable with rest periods throughout the day. Rest with leg elevation is very important. Use the ice wrap frequently for the first 3-4 weeks. D. There are no restrictions on activities. You may ride in a car, shop, participate in nitrating acid mixer and all social activities. E. Wear the long elastic stockings (TONIA hose) 20 hours a day for 2 weeks after surgery. They can be removed several times a day for laundering and for a bath. F. You may shower, no tub baths until cleared by your doctor. SPECIAL CARE INSTRUCTIONS: VERY IMPORTANT TO READ AND REVIEW A. There are a few signs you need to watch for after you are home. Call [facility] [place] if you notice any of the followin. Increased severe knee pain. Some pain is expected especially when you exercise. 2. Increased swelling in your leg or knee; pain or swelling of the calf muscle in either lower leg. 3. Any fluid drainage from the incision. 4. Shortness of breath or chest pain. B. Please call [facility] [place] at if you have any concerns or questions about your operation or recovery. The doctor or his nurse will return your call promptly. C. You must take antibiotics before dental work, bladder, bowel or other surgery. Your doctor will provide you with a permanent care to carry describing this precaution. IMPORTANT: * REMEMBER TO TAKE ASPIRIN, 81 MG, TWICE DAILY FOR 4 WEEKS UNLESS OTHERWISE DIRECTED. THIS IS YOUR BLOOD THINNER. * HIGH RISK PATIENTS MAY BE PRESCRIBED A STRONGER BLOOD THINNER. THIS WILL BE PROVIDED AT DISCHARGE. * CALL IF INCREASED PAIN, REDNESS, DRAINAGE OR FEVER GREATER THAT 101. * WEAR TONIA HOSE 20 HOURS PER DAY FOR 2 WEEKS. * YOU MAY HAVE A LARGE BAND-AID LIKE DRESSING (SILVERON). THIS WILL REMAIN ON YOUR INCISION FOR 7 DAYS, THEN CAN BE REMOVED. IF INCISION IS LEAKING THROUGH DRESSING, CALL THE OFFICE . FOLLOW UP VISIT: If appointment is not already scheduled: Please call [facility] [place] to make a follow-up appointment for 2 weeks after your surgery at . YOU HAVE A WOUND VAC ON, KEEP IN PLACE FOR 1 WEEK POST OP THEN REMOVE AND DISCARD ALL PARTS, REPLACE WITH STERILE DRESSINGS DAILY UNTIL FOLLOW UP IN OFFICE. Current Hospital Diet Patient's current hospital diet: Regular Diet Discharge Diet Recommended Diet: Regular Diet Procedures Procedures Performed: Right Total Knee Arthoplasty Pending Studies Studies pending at discharge: no Laboratory Results Hemoglobin A1c Test 05/14/16 14:19 Range/Units Estimated Average Glucose 123 mg/dl Hemoglobin A1c 5.9 H 4.5-5.6 % Medical Emergencies . Who to Call and When: Medical Emergencies: If at any time you feel your situation is an emergency, please call 911 immediately. . Non-Emergent Contact Non-Emergency issues call your: Primary Care Provider . "Provider Documentation" section prepared by Los Niño. . VTE Core Measure Inpt VTE Proph given/why not?: Other Anticoagulation (ASA), T.E.DHugh Clark, SCD's [place] Drug Monitoring Program Search Results: patient reviewed within database, no issues identified
[2016-06-21 10:30] VITALS: BP 128/78; PULSE 90; TEMP 36.8; O2SAT 95
--- NOTE | 2016-06-26 08:44 | DISCHARGE SUMMARY ---
DISCHARGE DIAGNOSIS: Degenerative joint disease, right knee. SECONDARY DIAGNOSES: Hypertension, hypercholesterolemia, hypothyroidism, osteoarthritis, GERD, hiatal hernia. CONSULTS: Delfina York D.O. COMPLICATIONS: None. PROCEDURES: Right total knee arthroplasty performed by Dr. Rdz on 06/19/2016. BRIEF HISTORY: As dictated in the history and physical. HOSPITAL SUMMARY: The patient was admitted on the above noted date and had the above-noted surgery performed which she tolerated well. On the first postoperative day, she was feeling well and pain was controlled and she had no complaints. Calves were soft, nontender, neurovascularly intact. Dressings were changed clean, dry and intact. Toes were mobile. Vital signs were stable. She was afebrile and she was started on physical therapy protocol and continued on DVT prophylaxis and pain management. Hemoglobin was 9.5. By her second postoperative day, she continued to remain medically stable. She was feeling well and pain was controlled. Dressings were intact. Toes were mobile. Calves were soft and nontender. Vital signs were stable. She was afebrile. Hemoglobin was 8.5. She was progressing well with her physical therapy and it was felt that she could be discharged to home with plans for outpatient PT. For further review, please see chart. LAB AND X-RAY DATA: As per chart. DISCHARGE INSTRUCTIONS: The patient was discharged to home in satisfactory condition on 06/21/2016. DIET: Regular. ACTIVITY: Follow TK instruction sheets and special care instructions as noted and follow up with Dr. Rdz in 2 weeks. The patient to call for appointment if one has not been made for you. DISCHARGE MEDICATIONS: Acetaminophen 1000 mg p.o. q. 8 hours, aspirin 81 mg p.o. b.i.d., ferrous gluconate 324 mg p.o. t.i.d., OxyContin 10 mg p.o. q. 12 hours, oxycodone 5-10 mg p.o. q. 4 hours p.r.n., resume taking levothyroxine 125 mcg p.o. q.a.m., omeprazole 20 mg p.o. q.a.m., saline 1-2 sprays nasally p.r.n., simvastatin 40 mg at bedtime, Diovan, hydrochlorothiazide 160/12.5 one tab p.o. q.a.m. Stop taking 1300 mg dosing of acetaminophen. After 30 days resume your once daily dosing of aspirin and stop taking fish oil caplet.
== END 2016-06-21 11:37 | disposition home or self-care (01) | DRG 470 ==
LOC: ENRESERVDT → ENRESERVTM → C.ACU 09:18 → C.MSW 10:13
PROVIDERS: ADMIT Orthopaedic Surgery Sports Medicine; ATTEND Orthopaedic Surgery Sports Medicine
PROC: 0SRC0J9 Replacement of Right Knee Joint with Synthetic Substitute, Cemented, Open Approach (ICD-10-PCS; principal; 2016-06-19 11:30)
DX: M17.11 Unilateral primary osteoarthritis, right knee (principal); I10 Essential (primary) hypertension; E78.00 Pure hypercholesterolemia, unspecified; E03.9 Hypothyroidism, unspecified; M19.90 Unspecified osteoarthritis, unspecified site; K21.9 Gastro-esophageal reflux disease without esophagitis; K44.9 Diaphragmatic hernia without obstruction or gangrene; Z90.49 Acquired absence of other specified parts of digestive tract; Z90.710 Acquired absence of both cervix and uterus; Z79.899 Other long term (current) drug therapy; E66.9 Obesity, unspecified; Z68.37 Body mass index [BMI] 37.0-37.9, adult; E78.5 Hyperlipidemia, unspecified

== ENCOUNTER → 2016-07-17 | Outpatient (CLI) | payer OTHER, MEDICARE ==
[~2016-07-17] MED LIST changes: +ACET-1138 PO; -ACET1TAB84 PO; -ACETAMINOPHEN 500 MG TAB PO SCH; +ASPEC81 PO; -ASPI81TA28 PO; -BUPIVACAINE 0.5 % 5 MG/1 ML PF 10ML VIAL ONE; -CEFAZOLIN 2000 MG/60 ML D5W 60 ML IV SCH; -CeleBREX 200 MG CAP PO SCH; -DEXAMETHASONE 4 MG TAB PO SCH; -FAMOTIDINE 20 MG TAB PO SCH; +FRRG PO; -GABAPENTIN 300 MG CAP PO SCH; -LACTATED RINGER'S 1000ML 1,000 ML IV SCH; -LACTATED RINGER'S 1000ML 500 ML IV ONE; -LACTATED RINGER'S 1000ML IV SCH; -METOCLOPRAMIDE HCL 10 MG TAB PO SCH; -OMEG10007 PO; +OXYSR10 PO; -ROPIVACAINE 5MG/ML 30 ML 150 MG, BUPIVACAINE/EPINEPHR 0.5% MPF 30 ML, KETOROLAC TROMETH... INFIL SCH; +RXC5 PO
[2016-07-17 14:54] LABS: BASO % 0.5 %; BASO ABS # 0.02 K/uL (0-0.2); COMPLETE YES; EOS % 3.2 %; HEMATOCRIT 36.3 % (37-47); LYMPH % 27.5 %; LYMPH ABS # 1.11 K/uL (1.2-3.4); MEAN CELL VOLUME 95.8 fL (80-100); MEAN CORPUSCULAR HEMOGLOBIN 31.1 pg (25-34); MEAN CORPUSCULAR HGB CONC 32.5 g/dl (32-36); MEAN PLATELET VOLUME 9.3 fL (7.4-10.4); MONO % 9.7 %; NEUT % 59.1 %; PLATELET COUNT 188 K/uL (130-400); RED BLOOD COUNT 3.79 M/uL (4.2-5.4); WHITE BLOOD COUNT 4.04 K/uL (4.8-10.8)
== END | disposition home or self-care (01) ==
LOC: C.LAB1850 13:05
PROVIDERS: ATTEND Physician Assistant
DX: D64.9 Anemia, unspecified (principal)

== ENCOUNTER → 2016-09-03 | Outpatient (CLI) | payer OTHER, MEDICARE ==
--- NOTE | 2016-09-03 13:54 | MAMMOGRAPHY REPORT ---
BILATERAL DIGITAL SCREENING MAMMOGRAM WITH CAD: 09/03/2016 CLINICAL HISTORY: Routine screening. TECHNIQUE: Bilateral CC and MLO views were obtained. Current study was also evaluated with a Compute r Aided Detection (CAD) system. COMPARISON: Comparison is made to exams dated: 08/29/2014 mammogram, 08/31/2015 mammogram, 08/26/2013 mamm ogram, 08/21/2012 mammogram, 08/19/2011 mammogram, and 08/13/2010 mammogram - [facility]. BREAST COMPOSITION: The tissue of both breasts is heterogeneously dense, which may obscure small mas ses. FINDINGS: The parenchymal pattern is unchanged. There are stable scattered benign-appearing microca lcifications. No developing mass, architectural distortion or cluster of suspicious microcalcificati ons is seen in either breast. IMPRESSION: ACR BI-RADS CATEGORY 2: BENIGN There is no mammographic evidence of malignancy. A 1 year screening mammogram is recommended. The pa tient will receive written notification of the results. Approximately 10% of breast cancers are not detected with mammography. A negative mammographic report should not delay biopsy if a clinically suggestive mass is present. Courtney Alcocer M.D. ay/:09/03/2016 08:10:13 Senior Technical Trainer: Arron KNUTSON(R)(M), [facility] letter sent: Normal 1/2 BI-RADS Code: ACR BI-RADS Category 2: Benign
== END | disposition home or self-care (01) ==
LOC: C.MAMM 07:21
PROVIDERS: ATTEND Internal Medicine
DX: Z12.31 Encounter for screening mammogram for malignant neoplasm of breast (principal)

== ENCOUNTER → 2017-01-13 | Outpatient (CLI) | payer OTHER, MEDICARE ==
[2017-01-13 13:43] LABS: BASO % 0.7 %; BASO ABS # 0.02 K/uL (0-0.2); COMPLETE YES; EOS % 3.8 %; HEMATOCRIT 39.9 % (37-47); LYMPH % 25.4 %; LYMPH ABS # 0.73 K/uL (1.2-3.4); MEAN CELL VOLUME 91.5 fL (80-100); MEAN CORPUSCULAR HGB CONC 32.8 g/dl (32-36); MEAN PLATELET VOLUME 9.3 fL (7.4-10.4); MONO % 8.4 %; NEUT % 61.7 %; PLATELET COUNT 133 K/uL (130-400); RED BLOOD COUNT 4.36 M/uL (4.2-5.4); WHITE BLOOD COUNT 2.87 K/uL (4.8-10.8)
[2017-01-13 13:53] LABS: ESTIMATED AVERAGE GLUCOSE 111 mg/dl; HA1C FLAG Normal (Normal)
[2017-01-13 14:17] LABS: ALT/SGPT 18 U/L (12-78); AST/SGOT 9 U/L (15-37); BLOOD UREA NITROGEN 13 mg/dl (7-18); BUN/CREATININE RATIO 18.7 (10-20); CALCIUM 9.2 mg/dl (8.5-10.1); CARBON DIOXIDE 30 mmol/L (21-32); CHLORIDE 102 mmol/L (98-107); CREATININE 0.71 mg/dl (0.60-1.20); GLUCOSE 92 mg/dl (70-99); POTASSIUM 3.9 mmol/L (3.5-5.1); SODIUM 139 mmol/L (136-145)
[2017-01-13 14:28] LABS: CHOLESTEROL 184 mg/dl (0-200); CHOLESTEROL/HDL RATIO 2.6; HDL CHOLESTEROL 71 mg/dl; LDL CHOLESTEROL CALCULATED 87 mg/dl; TRIGLYCERIDES 132 mg/dl (0-150); VERY LOW DENSITY LIPOPROT CALC 26 mg/dl
== END | disposition home or self-care (01) ==
LOC: C.LABBC 09:32
PROVIDERS: ATTEND Internal Medicine
DX: E78.00 Pure hypercholesterolemia, unspecified (principal)

== ENCOUNTER → 2017-01-30 | Outpatient (CLI) | payer OTHER, MEDICARE | END | disposition home or self-care (01) | LOC: C.PATHSPEC 17:31 | PROVIDERS: ATTEND Surgery | DX: L72.0 Epidermal cyst (principal) ==

== ENCOUNTER 2017-06-04 11:47 | Inpatient (IN) | payer OTHER, MEDICARE ==
[2017-05-02 14:43] VITALS: BMI 35.0
--- NOTE | 2017-05-02 15:13 | PAT Medication Instructions ---
Service Date May 02, 2017. Current Home Medication List Acetaminophen (Tylenol Arthritis Ext Rel), 650-1,300 MG PO Q8H PRN for PRN Aspirin (Aspirin Ec), 81 MG PO QAM Levothyroxine Sodium (Synthroid), 125 MCG PO QAM Omeprazole (Prilosec), 20 MG PO QAM Saline (Saline Nasal [place] ), 1-2 SPRY BERNARDA HS PRN for RN Simvastatin (Zocor), 40 MG PO HS Valsartan/Hctz (Diovan Hct 160MG/12.5MG), 1 TAB PO QAM Medication Instructions For Your Scheduled Surgery - Hold the following medications the morning of surgery: Valsartan/Hctz (Diovan Hct 160MG/12.5MG), 1 TAB PO QAM - Take the following medications the morning of surgery with a sip of water: Acetaminophen (Tylenol Arthritis Ext Rel), 650-1,300 MG PO Q8H PRN for PRN ( OKAY TO TAKE UP TO 4 HOURS PRIOR TO SURGERY IF NEEDED) Aspirin (Aspirin Ec), 81 MG PO QAM Levothyroxine Sodium (Synthroid), 125 MCG PO QAM Omeprazole (Prilosec), 20 MG PO QAM Saline (Saline Nasal [place] Infant), 1-2 SPRY BERNARDA HS PRN for RN - Take the following medications as scheduled the night before surgery: Simvastatin (Zocor), 40 MG PO HS Saline (Saline Nasal [place] Infant), 1-2 SPRY BERNARDA HS PRN for RN (IF NEEDED) If you have any questions please call us at [phone] or [phone] or [phone]
[2017-05-02 15:37] LABS: BASO % 0.6 %; BASO ABS # 0.02 K/uL (0-0.2); EOS % 1.7 %; EOS ABS # 0.06 K/uL (0-0.5); HEMATOCRIT 38.4 % (37-47); LYMPH ABS # 0.77 K/uL (1.2-3.4); MEAN CELL VOLUME 90.4 fL (80-100); MEAN CORPUSCULAR HEMOGLOBIN 30.6 pg (25-34); MEAN CORPUSCULAR HGB CONC 33.9 g/dl (32-36); MEAN PLATELET VOLUME 8.8 fL (7.4-10.4); MONO % 6.9 %; MONO ABS # 0.24 K/uL (0.11-0.59); NEUT % 68.8 %; NEUT ABS # 2.41 K/uL (1.4-6.5); PLATELET COUNT 118 K/uL (130-400); RED CELL DISTRIBUTION WIDTH CV 13.8 % (11.5-14.5); RED CELL DISTRIBUTION WIDTH SD 45.8 fL (36.4-46.3)
[2017-05-02 15:48] LABS: PTT PATIENT 26.4 SECONDS (21.0-31.0)
--- NOTE | 2017-05-02 15:56 | DIAGNOSTIC IMAGING REPORT ---
CHEST 2 VIEWS ROUTINE CLINICAL HISTORY: Preoperative chest COMPARISON STUDY: 05/14/2016 FINDINGS: The cardiac and mediastinal contours are normal. There is no evidence of focal pulmonary consolidation. There is no evidence of failure. No pleural effusions are visualized.[ There is a retrocardiac opacity consistent with a hiatal hernia. There is stable linear left basilar atelectasis/scarring. IMPRESSION: No active disease in the chest. Electronically signed by: Brenden Iniguez M.D. 05/02/2017 3:54 PM Dictated Date/Time: 05/02/2017 3:53 PM
[2017-05-02 16:28] LABS: ALBUMIN 3.7 gm/dl (3.4-5.0); CALCIUM 8.9 mg/dl (8.5-10.1); CREATININE 0.65 mg/dl (0.60-1.20); POTASSIUM 3.5 mmol/L (3.5-5.1)
[2017-05-03 07:56] LABS: HEMOGLOBIN A1C 5.5 % (4.5-5.6)
--- NOTE | 2017-06-03 22:17 | HISTORY & PHYSICAL EXAMINATION ---
DATE OF ADMISSION: 06/04/2017 CHIEF COMPLAINT: Chronic left knee pain. HISTORY OF PRESENT ILLNESS: This is a 76-year-old female patient of Dr. Rdz'oscar complaining of chronic left knee pain, longstanding, now progressively getting worse. The patient has failed conservative treatment including intraarticular injections, anti-inflammatories, the use of a knee sleeve. Patient has been diagnosed with end-stage osteoarthritis per clinical and radiographic exams. PAST MEDICAL HISTORY: Hypertension, hypercholesterolemia, irregular heartbeat, hypothyroidism, osteoarthritis, acid reflux, hiatal hernia. SOCIAL HISTORY: Nonsmoker, nondrinker. PAST SURGICAL HISTORY: Hysterectomy, gallbladder, hernia, cataract both eyes, knee replacement on the right, left shoulder surgery. FAMILY HISTORY: Noncontributory. REVIEW OF SYSTEMS: The patient complains of chronic left knee pain and instability. Otherwise denies any shortness of breath, chest pain, nausea, vomiting or any other joint complaints. MEDICATIONS: Omeprazole 20 mg daily, valsartan 160 mg/hydrochlorothiazide 12.5 mg daily, aspirin 81 mg daily, Tylenol Arthritis 650 mg every 12 hours p.r.n., Synthroid 125 mcg daily, simvastatin 40 mg daily. ALLERGIES: No known drug allergies. PHYSICAL EXAMINATION: GENERAL: Well-developed, well-nourished 76-year-old female in no acute distress. She is alert and oriented x3 and pleasant. HEENT: Normocephalic, atraumatic. Extraocular motions are intact. Pupils are equal and reactive to light. HEART: Regular rate and rhythm. No murmurs are appreciated. LUNGS: Clear. ABDOMEN: Soft and nontender. Bowel sounds are present. EXTREMITIES: Left knee reveals limited range of motion of 0-125 degrees with a varus deformity. She has crepitation with passive range of motion. She has medial joint line tenderness. She has 4+/5 strength. NEUROLOGIC: Neurovascularly, she is intact in her left lower extremity. DIAGNOSES: Left knee end-stage osteoarthritis, hypertension, hypercholesterolemia, irregular heartbeat, hypothyroidism, osteoarthritis, acid reflux, hiatal hernia. PLAN: Patient was advised of her diagnoses. Indications, risks, benefits, postop course have all been reviewed. Patient wished to proceed with a left total knee arthroplasty. Necessary consent forms, preoperative testing and clearances will be obtained.
[~2017-06-04] VITALS: Ht 167.6 cm; Wt 95.5 kg
[2017-06-04] VITALS (9 sets, daily range): BP systolic 111–164; BP diastolic 69–82; PULSE 73–79; TEMP 36.5–36.7; O2SAT 92–99; Ht 167.6 cm; Wt 95.5 kg
[~2017-06-04 11:47] MED LIST changes: -ACET-1138 PO; +ACET1TAB84 PO; +ACETAMINOPHEN 500 MG TAB PO SCH; -ASPEC81 PO; +ASPI81TA28 PO; +ATROPINE SULFATE 0.1 MG/ML 5ML SYR IV PRN; +BUPIVACAINE 0.25% 30 ML VIAL ONE; +BUPIVACAINE 0.5 % 5 MG/1 ML PF 10ML VIAL ONE; +CEFAZOLIN 2000MG IV PUSH 15 ML IV SCH; +CeleBREX 200 MG CAP PO SCH; +DEXAMETHASONE 4 MG TAB PO SCH; +EpHEDrine SULFATE INJ 50 MG/ML AMP IV PRN; +FAMOTIDINE 20 MG TAB PO SCH; -FRRG PO; +GABAPENTIN 300 MG CAP PO SCH; +LACTATED RINGER'S 1000ML 1,000 ML IV SCH; +LACTATED RINGER'S 1000ML 500 ML IV SCH; +METOCLOPRAMIDE HCL 10 MG TAB PO SCH; -OXYSR10 PO; +ROPIVACAINE 5MG/ML 30 ML 150 MG, BUPIVACAINE 0.5% MPF INJ 30 ML, EpINEphrine HCL INJ 0.... INFIL SCH; -RXC5 PO
[2017-06-04] MEDS ORDERED: FENTANYL CITRATE INJ 50 MCG/1 ML 2 ML VIAL ONE (12:03)
[2017-06-04] MEDS ORDERED: MIDAZOLAM HCL 1 MG/ML 2ML VIAL ONE (12:03)
[2017-06-04 12:32] LABS: PLATELET COUNT 122 K/uL (130-400)
[2017-06-04] MEDS ORDERED: POVIDONE-IODINE OP SOLN 30 ML BTL ONE (12:56)
[2017-06-04] MEDS ORDERED: ORTHO JOINT ANESTHETIC ONE (12:56)
[2017-06-04] MEDS ORDERED: BACITRACIN 50000 UNIT VIAL ONE (12:57)
[2017-06-04] MEDS: TRANEXAMIC ACID INJ 1,000 MG x 2 Bags IV SCH ×4 (12:59→18:12)
[2017-06-04] MEDS ORDERED: PROPOFOL IV EMULSION 10 MG/ML 20 ML VIAL IV ONE (14:32)
--- NOTE | 2017-06-04 15:07 | [facility] Post Operative Brief Note ---
Immediate Operative Summary Operative Date Jun 04, 2017. Pre-Operative Diagnosis left knee end-stage osteoarthritis Post-Operative Diagnosis left knee end-stage osteoarthritis Procedure(s) Performed left total knee arthroplasty,lateral release Surgeon Dr. Nacho Rdz Writing Manager Surgeon(s) Los CHAKRABORTY Estimated Blood Loss 5ML Findings Consistent with Post-Op Diagnosis Specimens A: Left knee bone and tissue Drains 2 hemovac Anesthesia Type MAC Spinal Regional Complication(s) none Disposition Disposition: Recovery Room / PACU
[2017-06-04] MEDS ORDERED: SOD PHOSPHATE/SOD BIPHOSPHATE ENEMA 132 ML BTL PR PRN (15:30)
[2017-06-04] MEDS ORDERED: METOCLOPRAMIDE HCL INJ 5 MG/ML 2 ML VIAL IV PRN (15:30)
[2017-06-04] MEDS ORDERED: MAGNESIUM HYDROXIDE SUSP 30 ML UDC PO PRN (15:30)
[2017-06-04] MEDS ORDERED: SODIUM CHLORIDE 0.65% NA SOLN 45 ML (OCEAN) NAE PRN (15:30)
[2017-06-04] MEDS ORDERED: BISACODYL 10 MG SUPP PR PRN (15:30)
[2017-06-04] MEDS ORDERED: ONDANSETRON INJ 2 MG/ML 2 ML VIAL IV PRN (15:30)
[2017-06-04] MEDS ORDERED: ZOLPIDEM TARTRATE 5 MG TAB PO PRN (15:30)
[2017-06-04] MEDS ORDERED: CEFAZOLIN IV 2,000 MG in DEXTROSE 5% 50ML 50 ML IV SCH (15:30)
[2017-06-04] MEDS ORDERED: OXYCODONE HCL IR 5 MG TAB (IMMEDIATE RELEASE) PO PRN (15:30)
[2017-06-04] MEDS ORDERED: MoRPHine SULFATE 2 MG/ML CARP IV PRN (15:30)
--- NOTE | 2017-06-04 16:02 | Anesthesiology Progress Note ---
Anesthesia Post Op Note Date & Time Jun 04, 2017 at 16:01 Vital Signs Pain Intensity: 0 Vital Signs Past 12 Hours Date Time Temp Pulse Resp B/P (MAP) Pulse Ox O2 Delivery O2 Flow Rate FiO2 06/04/17 15:50 76 14 134/72 99 Nasal Cannula 3 06/04/17 15:40 75 15 120/73 99 Nasal Cannula 3 06/04/17 15:30 36.6 72 14 105/69 97 Nasal Cannula 3 06/04/17 12:19 36.6 76 20 139/ 95 Room Air Notes Mental Status: alert / awake / arousable, participated in evaluation Pt Amnestic to Procedure: Yes Nausea / Vomiting: adequately controlled Pain: adequately controlled Airway Patency, RR, SpO2: stable & adequate BP & HR: stable & adequate Hydration State: stable & adequate Neuraxial Anesthesia: was administered, sensory block is resolving Anesthetic Complications: no major complications apparent
--- NOTE | 2017-06-04 16:31 | [facility] Operative Report ---
Operative Report Operative Date Jun 04, 2017. Pre-Operative Diagnosis left knee end-stage osteoarthritis Post-Operative Diagnosis Same Procedure(s) Performed Left total knee arthroplasty Surgeon Dr. Nacho Rdz Services Manager Surgeon(s) Los CHAKRABORTY Estimated Blood Loss 5ML Findings Tricompartmental DJD valgus knee [id number] medial compartment Specimens A: Left knee bone and tissue Drains 2 hemovac Anesthesia Spinal sedation regional block orthomix Complication(s) None Disposition Recovery Room / PACU Indications 76 female end-stage osteoarthritis left knee failed conservative management. Status post successful right knee replacement past. Description of Procedure The patient was taken to the operating room and anesthetized under spinal sedation regional block. Patient was placed supine on the the operating table. A pneumatic tourniquet was placed about the left upper thigh. The knee exam demonstrated obese thigh chronic swelling in the knee 15 degree flexion contracture flexion to 110 degrees. The involved leg was elevated exsanguinated with Esmarch bandage and the pneumatic tourniquet was raised to 325 millimeters mercury. A longitudinal incision was made across the anterior knee. Skin flaps were elevated. An incision was made into the medial retinaculum and extended up into the mid third of the quadriceps tendon and extended down to the tibial tubercle. Intra-articular findings demonstrated tricompartment DJD [id number] medial compartment. The knee was exposed by excising cruciate ligaments and menisci. The infrapatellar fat pad was resected. The fat pad over the anterior femur at the upper aspect of the articular surface was resected for placement of the component in that area. A subperiosteal peel lateral release was performed around the patella The [employer] journey 2.0 total knee arthroplasty system was utilized for the procedure. The custom femoral cutting guide was pinned in position. The distal femoral cut was made. The size 5, 5 in 1 cutting block was placed. The anterior posterior and chamfer cuts were made. The knee was extended and a free hand cut technique was performed to the patella. The patella with was measured and the width was reproduced using a patella component. 3 drill holes are made for the patella component pegs. The tibia was then subluxed. The custom tibial cutting block was pinned in position and the proximal tibial cut was made with the oscillating saw. The size 4 tibial trial was externally rotated in line with the tibial tubercle and pinned in position. The punch for the stem was used. The femoral trial was inserted and centered the notch cutting devices were used and the collet was placed. Tibial trials were used for the insert. The size 11 trial gave balanced ligaments through full range of motion. Patella tracking was assessed with range of motion. The patella tracked slightly laterally so I did a lateral release leaving the synovium intact patella then tracked centrally. The trials were removed. The Orthomix anesthetic cocktail was injected per protocol. The cut bone surfaces and soft tissue were copiously irrigated with antibiotic solution with bacitracin. The final components were cemented with Simplex cement. The final components were 5 Oxinium posterior stabilized left femoral component for tibial baseplate 11 mm posterior stabilized high flex polyethylene insert and 35 mm patella dome. While the cement cured the Betadine soak was used per protocol. When the cement cured the knee was copiously irrigated with pulsatile lavage antibiotic solution with bacitracin. 2 drains were brought out laterally connected to Hemovac. The quadriceps tendon and medial retinaculum were closed with interrupted [id number] #1 Vicryl sutures. The knee was taken through full range of motion and repair was secure. The subcutaneous tissues were closed with 2-0 Vicryl sutures. The skin was closed with brandy. A sterile dressing was applied. The tourniquet was let down and the patient had good capillary refill to the extremity. The patient tolerated the procedure well. My physician culture media laboratory assistant Los CHAKRABORTY assisted in the procedure including prepping draping leg positioning soft tissue retraction instrument management and assisted in the closure ,dressings application and will participate in postoperative care the patient. I attest to the content of the Intraoperative Record and any orders documented therein. Any exceptions are noted below.
--- NOTE | 2017-06-04 16:32 | DIAGNOSTIC IMAGING REPORT ---
L KNEE 1 OR 2 VIEWS ROUTINE HISTORY: 76 years-old Female AP/LATERAL IN PACU LEFT KNEE status post left knee total joint arthroplasty. Degenerative joint disease. COMPARISON: None available TECHNIQUE: 2 views of the left knee FINDINGS: Postoperative changes from recent left knee total joint arthroplasty with patellar resurfacing. Anterior midline skin brandy are noted along with expected postsurgical soft tissue swelling and deep tissue air. Surgical drain is in place. Alignment is satisfactory without periprostatic fracture. IMPRESSION: Left knee total joint arthroplasty and patellar resurfacing without complication. The above report was generated using voice recognition software. It may contain grammatical, syntax or spelling errors. Electronically signed by: Alex Dykes M.D. 06/04/2017 4:30 PM Dictated Date/Time: 06/04/2017 4:29 PM
[2017-06-04] MEDS: D5W AND 1/2NSS + 20MEQ KCL 1,000 ML IV SCH (18:13)
--- NOTE | 2017-06-04 18:14 | Medical Consult ---
Consultation Date of Consultation: Jun 04, 2017. Attending Physician: Nacho Rdz M.D. Reason for Consultation: Medical management History of Present Illness Patient is a 76yo C female with history of HTN, HLP, Hypothyroidism and OA s/p left TKA performed today. Patient presently feels wee with no complaints. Her pain is well controlled. She is sitting comfortably in bed having her dinner. No complaints at this time Past Medical/Surgical History Hyperlipidemia Hypertension Hypothyroidism Elevated blood sugar GERD Thrombocytopenia Osteoarthritis Past Surgical History: Cataract removal Cholecystectomy Excision of cyst on back Right inguinal hernia repair Right TKA Left TKA Family History Heart disease Social History Smoking Status: Never Smoker Smokeless Tobacco Use: No Alcohol Use: none Drug Use: none Marital Status: Housing Status: lives with family Allergies Coded Allergies: No Known Allergies (Verified , 06/04/17) Home Medications Omeprazole Aleve Simvastatin 40mg po daily HCTZ-Valsartan Synthroid Tylenol ASA 81mg Current Inpatient Medications Current Inpatient Medications Medications (Trade) Dose Ordered Sig/Maggie Route Start Time Stop Time Status Last Admin Dose Admin Levothyroxine Sodium (Synthroid Tab) 125 mcg DAILYBB PO 06/05/17 06:00 07/05/17 05:59 Sodium Chloride ([facility]al [facility]) 1 sprays HS PRN BERNARDA 06/04/17 15:30 07/04/17 15:29 Simvastatin (Zocor Tab) 40 mg HS PO 06/04/17 21:00 07/04/17 20:59 Potassium Chloride/Dextrose/ Sod Cl 1,000 ml @ 100 mls/hr Q10H IV 06/04/17 17:00 06/05/17 16:59 Celecoxib (CeleBREX CAP) 200 mg BID PO 06/04/17 21:00 07/04/17 20:59 Oxycodone HCl (Roxicodone Immediate Rel Tab) 1 TABLET FOR PAIN RATING... Q4H PRN PO 06/04/17 15:30 06/18/17 15:29 Morphine Sulfate (MoRPHine SULFATE INJ) FOR PAIN, 2-4MG 2MG FOR P... Q2H PRN IV 06/04/17 15:30 06/18/17 15:29 Acetaminophen (Tylenol Tab) 1,000 mg Q8H PO 06/04/17 22:00 07/04/17 21:59 Magnesium Hydroxide (Milk Of Magnesia Susp) 30 ml Q6H PRN PO 06/04/17 15:30 07/04/17 15:29 Bisacodyl (Dulcolax Supp) 10 mg DAILY PRN VT 06/04/17 15:30 07/04/17 15:29 Sodium Biphosphate/ Sodium Phosphate (Fleet Enema) 132 ml DAILY PRN VT 06/04/17 15:30 07/04/17 15:29 Docusate Sodium (coLACE CAP) 100 mg BID PO 06/04/17 21:00 07/04/17 20:59 Diphenhydramine HCl (Benadryl Cap) 25 mg Q8H PRN PO 06/04/17 15:30 07/04/17 15:29 Zolpidem Tartrate (Ambien Tab) 5 mg HSZ PRN PO 06/04/17 15:30 07/04/17 15:29 Multivitamins (Multivitamin Tab) 1 tab QAM PO 06/05/17 09:00 07/05/17 08:59 Ondansetron HCl (Zofran Inj) 4 mg Q6H PRN IV 06/04/17 15:30 07/04/17 15:29 Metoclopramide HCl (Reglan Inj) 10 mg Q6H PRN IV 06/04/17 15:30 07/04/17 15:29 Pantoprazole Sodium (Protonix Tab) 40 mg QAM PO 06/05/17 09:00 07/05/17 08:59 Tramadol HCl (Ultram Tab) 1 tablet for pain rating... Q4H PRN PO 06/04/17 15:30 07/04/17 15:29 Aspirin (Ecotrin Tab) 81 mg BID PO 06/04/17 21:00 07/04/17 20:59 Cefazolin Sodium 2000 mg/Syringe 15 ml @ 3.75 mls/ min Q8H IV 06/04/17 22:00 06/05/17 06:03 Valsartan (Diovan Tab) 160 mg QAM PO 06/05/17 09:00 07/05/17 08:59 Hydrochlorothiazide (Hydrochlorothiazide Tab) 12.5 mg QAM PO 06/05/17 09:00 07/05/17 08:59 Review of Systems Constitutional: No fever, No chills, No weight loss, No fatigue Eyes: No worsening of vision ENT: No unusual epistaxis, No sore throat, No trouble swallowing Respiratory: No cough, No sputum, No wheezing, No shortness of breath, No dyspnea on exertion Cardiovascular: No chest pain, No orthopnea, No edema, No palpitations Abdomen: No pain, No nausea, No vomiting, No diarrhea, No constipation Musculoskeletal: No swelling, No calf pain Genitourinary - Female: No dysuria, No urinary frequency, No urinary urgency Physical Exam Date Time Temp Pulse Resp B/P (MAP) Pulse Ox O2 Delivery O2 Flow Rate FiO2 06/04/17 17:29 36.5 79 16 149/80 (103) 95 Nasal Cannula 2.0 06/04/17 16:49 95 Nasal Cannula 2.0 06/04/17 16:46 36.5 76 15 130/76 (94) 93 Nasal Cannula 2.0 06/04/17 16:45 99 Nasal Cannula 2.0 06/04/17 16:30 78 14 136/76 97 Nasal Cannula 3 06/04/17 16:15 75 14 137/84 97 Nasal Cannula 3 06/04/17 16:00 36.5 74 14 133/88 97 Nasal Cannula 3 06/04/17 15:50 76 14 134/72 99 Nasal Cannula 3 06/04/17 15:40 75 15 120/73 99 Nasal Cannula 3 06/04/17 15:30 36.6 72 14 105/69 97 Nasal Cannula 3 06/04/17 12:19 36.6 76 20 139/ 95 Room Air General Appearance: WD/WN, no apparent distress Head: normocephalic, atraumatic Eyes: normal inspection, PERRL, sclerae normal ENT: normal ENT inspection, pharynx normal Neck: supple, no adenopathy, no JVD, trachea midline Respiratory/Chest: chest non-tender, lungs clear, normal breath sounds, no respiratory distress, no accessory muscle use Cardiovascular: regular rate, rhythm, no edema, no gallop, no murmur, normal peripheral pulses Abdomen/GI: normal bowel sounds, non tender, soft, no organomegaly Extremities/Musculoskelatal: normal inspection, non-tender Neurologic/Psych: alert, oriented x 3 Skin: normal color, warm/dry, + rash Laboratory Results Last 24 Hours Test 06/04/17 12:23 Platelet Count 122 K/uL Assessment & Plan 76yo C female s/p left total knee arthroplasty performed today. Procedure well tolerated, patient is doing well without complaints 1. s/p left TKA - patient doing well -post operative pain control and managment per primary team 2. Hypertension - blood pressure mildly elevated at present -May resume home HCTZ-Valsartan -Continue to monitor 3. Hyperlipidemia - Stable -May resume home Simvastatin 4. Hypothyroidism - Stable -May resume home Synthroid 5. GERD - Stable -May resume home Omeprazole 6. Thrombocytopenia - patient with platelets of 118 today. She has history of the same with ranges of 103-188 in the past. No active bleeding. No petechiae -Continue to monitor, check CBC in AM 7. Remainder of management per primary team. Thank you for this consult.
[2017-06-04] MEDS: ASPIRIN 81 MG ECTAB PO SCH (21:27)
[2017-06-04] MEDS: CeleBREX 200 MG CAP PO SCH (21:28)
[2017-06-04] MEDS: SIMVASTATIN 40 MG TAB PO SCH (21:28)
[2017-06-04] MEDS: DOCUSATE SODIUM 100 MG CAP PO SCH (21:29)
[2017-06-04] MEDS: ACETAMINOPHEN 500 MG TAB PO SCH (21:30)
[2017-06-04] MEDS: CEFAZOLIN IV 2,000 MG in SYRINGE 0 ML IV SCH (21:31)
[2017-06-05] MEDS: TRAMADOL HCL 50 MG TAB PO PRN (00:29)
[2017-06-05] MEDS: D5W AND 1/2NSS + 20MEQ KCL 1,000 ML IV SCH ×2 (02:49→11:53)
[2017-06-05 03:32] VITALS: BP 118/71; PULSE 79; TEMP 36.6; O2SAT 93
[2017-06-05] MEDS: CEFAZOLIN IV 2,000 MG in SYRINGE 0 ML IV SCH (05:41)
[2017-06-05] MEDS: LEVOTHYROXINE 125 MCG TAB PO SCH (05:42)
[2017-06-05] MEDS: ACETAMINOPHEN 500 MG TAB PO SCH ×3 (05:42→21:37)
[2017-06-05 07:22] VITALS: BP 138/76; PULSE 81; TEMP 36.7; O2SAT 93
[2017-06-05 07:51] LABS: HEMATOCRIT 30.7 % (37-47); HEMOGLOBIN 10.3 g/dL (12.0-16.0); MEAN CELL VOLUME 89.8 fL (80-100); MEAN CORPUSCULAR HEMOGLOBIN 30.1 pg (25-34); MEAN CORPUSCULAR HGB CONC 33.6 g/dl (32-36); MEAN PLATELET VOLUME 9.1 fL (7.4-10.4); PLATELET COUNT 125 K/uL (130-400); RED CELL DISTRIBUTION WIDTH CV 13.3 % (11.5-14.5); RED CELL DISTRIBUTION WIDTH SD 43.1 fL (36.4-46.3); WHITE BLOOD COUNT 8.34 K/uL (4.8-10.8)
[2017-06-05 08:21] LABS: CALCIUM 8.5 mg/dl (8.5-10.1); CREATININE 0.77 mg/dl (0.60-1.20)
[2017-06-05] MEDS: DOCUSATE SODIUM 100 MG CAP PO SCH ×2 (08:43→20:27)
[2017-06-05] MEDS: ASPIRIN 81 MG ECTAB PO SCH ×2 (08:44→20:27)
[2017-06-05] MEDS: HYDROCHLOROTHIAZIDE 25 MG TAB PO SCH (08:44)
[2017-06-05] MEDS: CeleBREX 200 MG CAP PO SCH ×2 (08:44→20:27)
[2017-06-05] MEDS: VALSARTAN 80 MG TAB PO SCH (08:45)
[2017-06-05] MEDS: PANTOprazole SOD 40 MG TAB PO SCH (08:45)
[2017-06-05] MEDS: MULTIVITAMIN TAB PO SCH (08:46)
[2017-06-05] MEDS ORDERED: VALSARTAN/HCTZ 160/12.5 MG TAB PO SCH (09:00)
--- NOTE | 2017-06-05 10:12 | Orthopedic Progress Note ---
Orthopedic Progress Note Date of Service Jun 05, 2017. Subjective Post OP Day: 1 Reports: feeling well, pain controlled w PO medications, Denies: complaints, chest pain, SOB, nausea / vomiting, light headedness, calf pain Objective calves soft nontender, N/V intact, capillary refill less than 2 sec., dressing C /D/I, A&O x3, toes mobile Date Time Temp Pulse Resp B/P (MAP) Pulse Ox O2 Delivery O2 Flow Rate FiO2 06/05/17 07:22 36.7 81 16 138/76 (96) 93 Room Air 06/05/17 03:32 36.6 79 16 118/71 (87) 93 Room Air 06/05/17 00:00 Room Air 06/04/17 22:46 36.6 78 15 111/69 (83) 92 Room Air 06/04/17 20:00 Room Air 06/04/17 19:46 36.6 73 16 129/82 (98) 94 Nasal Cannula 2.0 06/04/17 18:46 36.7 76 18 164/80 (108) 94 Room Air 06/04/17 17:45 76 18 132/78 (96) 94 Nasal Cannula 2.0 06/04/17 17:29 36.5 79 16 149/80 (103) 95 Nasal Cannula 2.0 06/04/17 16:49 95 Nasal Cannula 2.0 06/04/17 16:46 36.5 76 15 130/76 (94) 93 Nasal Cannula 2.0 06/04/17 16:45 99 Nasal Cannula 2.0 06/04/17 16:30 78 14 136/76 97 Nasal Cannula 3 06/04/17 16:15 75 14 137/84 97 Nasal Cannula 3 06/04/17 16:00 36.5 74 14 133/88 97 Nasal Cannula 3 06/04/17 15:50 76 14 134/72 99 Nasal Cannula 3 06/04/17 15:40 75 15 120/73 99 Nasal Cannula 3 06/04/17 15:30 36.6 72 14 105/69 97 Nasal Cannula 3 06/04/17 12:19 36.6 76 20 139/ 95 Room Air Laboratory Results 24 Hours: Test 06/05/17 07:26 Hematocrit 30.7 % Hemoglobin 10.3 g/dL Assessment & Plan Assessment: POD #1, LEFT TKA Inhouse Planning Pain Management: Celebrex, Ultram, Morphine, PO Tylenol, Oxy IR DVT Prophylaxis: TEDs, SCDs, ASA Discharge Planning Discharge Planning: home with oppt Pain Management: Celebrex, PO Tylenol, Oxy IR DVT Prophylaxis: TEDs, ASA Therapy: Physical Therapy, Occupational Therapy
[2017-06-05 11:25] VITALS: BP 126/74; PULSE 86; TEMP 36.7; O2SAT 94
--- NOTE | 2017-06-05 14:26 | Anesthesiology Progress Note ---
Anesthesia Post Op Note Date & Time Jun 05, 2017 at 14:25 Vital Signs Vital Signs Past 12 Hours Date Time Temp Pulse Resp B/P (MAP) Pulse Ox O2 Delivery O2 Flow Rate FiO2 06/05/17 11:25 36.7 86 16 126/74 (91) 94 Room Air 06/05/17 08:45 Room Air 06/05/17 07:22 36.7 81 16 138/76 (96) 93 Room Air 06/05/17 03:32 36.6 79 16 118/71 (87) 93 Room Air Notes Mental Status: alert / awake / arousable, participated in evaluation Pt Amnestic to Procedure: Yes Nausea / Vomiting: adequately controlled Pain: adequately controlled Airway Patency, RR, SpO2: stable & adequate BP & HR: stable & adequate Hydration State: stable & adequate Neuraxial Anesthesia: sensory block resolved Anesthetic Complications: no major complications apparent
[2017-06-05 15:02] VITALS: BP 118/68; PULSE 91; TEMP 36.7; O2SAT 93
--- NOTE | 2017-06-05 15:16 | Hospitalist Progress Note ---
Hospitalist Progress Note Date of Service Jun 05, 2017. Subjective Pt evaluation today including: conversation w/ patient, physical exam, chart review, lab review, conversation w/ content management consultant Voiding: no voiding problems Ms. Reese is feeling very well, no pain, sitting up in a chair eating lunch with her . Occupational and Physical therapy went well. She has no concerns ROS Constitutional: no chills, aches, sweats or fever Respiratory: no sob,cough, sputum, or wheezing Cardiac: no chest pain, palpitations, edema, orthopnea or lightheadedness GI: no abdominal pain, nausea, vomiting, diarrhea or constipation : no dysuria or hesitancy Extremities: no joint pain or weakness Skin: no rash All other systems reviewed and negative Medications Medications Administered Medications (Trade) Dose Ordered Sig/Maggie Route Start Time Stop Time Status Last Admin Dose Admin Ropivacaine 150 mg/Bupivacaine HCl 30 ml/ Epinephrine HCl 0.15 mg/Ketorolac Tromethamine 30 mg/Dexamethasone Sodium Phosphate 4 mg/Ketamine HCl 10 mg/Clonidine 100 mcg/Sodium Chloride 93.35 ml @ 0 mls/hr TODAY@06 INFIL 06/04/17 06:00 06/04/17 14:30 DC 06/04/17 14:56 93.3 MLS/HR Cefazolin Sodium 15 ml @ 3.75 mls/ min PREOP IV 06/04/17 06:00 06/04/17 18:01 DC 06/04/17 13:24 3.75 MLS/MIN Acetaminophen (Tylenol Tab) 1,000 mg PREOP PO 06/04/17 06:00 06/04/17 18:01 DC 06/04/17 12:55 1,000 MG Celecoxib (CeleBREX CAP) 200 mg PREOP PO 06/04/17 06:00 06/04/17 18:01 DC 06/04/17 12:55 200 MG Dexamethasone (Decadron Tab) 8 mg PREOP PO 06/04/17 06:00 06/04/17 18:01 DC 06/04/17 12:54 8 MG Famotidine (Pepcid Tab) 20 mg PREOP PO 06/04/17 06:00 06/04/17 18:01 DC 06/04/17 12:54 20 MG Gabapentin (Neurontin Cap) 300 mg PREOP PO 06/04/17 06:00 06/04/17 18:01 DC 06/04/17 12:54 300 MG Metoclopramide HCl (Reglan Tab) 10 mg PREOP PO 06/04/17 06:00 06/04/17 18:01 DC 06/04/17 12:54 10 MG Tranexamic Acid 1000 mg/Sodium Chloride 110 ml @ 660 mls/hr TODAY@06,0630 IV 06/04/17 06:00 06/04/17 14:30 DC 06/04/17 12:59 660 MLS/HR Lactated Ringer's 500 ml @ 999 mls/hr Q31M IV 06/04/17 06:00 06/04/17 06:30 DC 06/04/17 12:30 999 MLS/HR Povidone Iodine (Betadine Ophthalmic Prep Solution) 30 ml STK-MED ONCE .ROUTE 06/04/17 12:56 06/04/17 12:57 DC 06/04/17 14:57 30 ML Bacitracin (Bacitracin Inj) 50,000 units STK-MED ONCE .ROUTE 06/04/17 12:57 06/04/17 12:58 DC 06/04/17 14:58 50,000 UNITS Levothyroxine Sodium (Synthroid Tab) 125 mcg DAILYBB PO 06/05/17 06:00 07/05/17 05:59 06/05/17 05:42 125 MCG Simvastatin (Zocor Tab) 40 mg HS PO 06/04/17 21:00 07/04/17 20:59 06/04/17 21:28 40 MG Potassium Chloride/Dextrose/ Sod Cl 1,000 ml @ 100 mls/hr Q10H IV 06/04/17 17:00 06/05/17 16:59 06/05/17 11:53 100 MLS/HR Celecoxib (CeleBREX CAP) 200 mg BID PO 06/04/17 21:00 07/04/17 20:59 06/05/17 08:44 200 MG Acetaminophen (Tylenol Tab) 1,000 mg Q8H PO 06/04/17 22:00 07/04/17 21:59 06/05/17 14:21 1,000 MG Docusate Sodium (coLACE CAP) 100 mg BID PO 06/04/17 21:00 07/04/17 20:59 06/05/17 08:43 100 MG Multivitamins (Multivitamin Tab) 1 tab QAM PO 06/05/17 09:00 07/05/17 08:59 06/05/17 08:46 1 TAB Pantoprazole Sodium (Protonix Tab) 40 mg QAM PO 06/05/17 09:00 07/05/17 08:59 06/05/17 08:45 40 MG Tramadol HCl (Ultram Tab) 1 tablet for pain rating... Q4H PRN PO 06/04/17 15:30 07/04/17 15:29 06/05/17 00:29 50 MG Aspirin (Ecotrin Tab) 81 mg BID PO 06/04/17 21:00 07/04/17 20:59 06/05/17 08:44 81 MG Cefazolin Sodium 2000 mg/Syringe 15 ml @ 3.75 mls/ min Q8H IV 06/04/17 22:00 06/05/17 06:03 DC 06/05/17 05:41 3.75 MLS/MIN Valsartan (Diovan Tab) 160 mg QAM PO 06/05/17 09:00 07/05/17 08:59 06/05/17 08:45 160 MG Hydrochlorothiazide (Hydrochlorothiazide Tab) 12.5 mg QAM PO 06/05/17 09:00 07/05/17 08:59 06/05/17 08:44 12.5 MG Objective Vital Signs Date Time Temp Pulse Resp B/P (MAP) Pulse Ox O2 Delivery O2 Flow Rate FiO2 06/05/17 11:25 36.7 86 16 126/74 (91) 94 Room Air 06/05/17 08:45 Room Air 06/05/17 07:22 36.7 81 16 138/76 (96) 93 Room Air 06/05/17 03:32 36.6 79 16 118/71 (87) 93 Room Air 06/05/17 00:00 Room Air 06/04/17 22:46 36.6 78 15 111/69 (83) 92 Room Air 06/04/17 20:00 Room Air 06/04/17 19:46 36.6 73 16 129/82 (98) 94 Nasal Cannula 2.0 06/04/17 18:46 36.7 76 18 164/80 (108) 94 Room Air 06/04/17 17:45 76 18 132/78 (96) 94 Nasal Cannula 2.0 06/04/17 17:29 36.5 79 16 149/80 (103) 95 Nasal Cannula 2.0 06/04/17 16:49 95 Nasal Cannula 2.0 06/04/17 16:46 36.5 76 15 130/76 (94) 93 Nasal Cannula 2.0 06/04/17 16:45 99 Nasal Cannula 2.0 06/04/17 16:30 78 14 136/76 97 Nasal Cannula 3 06/04/17 16:15 75 14 137/84 97 Nasal Cannula 3 06/04/17 16:00 36.5 74 14 133/88 97 Nasal Cannula 3 06/04/17 15:50 76 14 134/72 99 Nasal Cannula 3 06/04/17 15:40 75 15 120/73 99 Nasal Cannula 3 06/04/17 15:30 36.6 72 14 105/69 97 Nasal Cannula 3 Physical Exam Notes: General: no distress Eyes: normal inspection, PERLL Respiratory: chest non tender, clear to auscultation, normal breath sounds, no respiratory distress, no accessory muscle use Cardiac: regular rate and rhythm, no rub or gallop, no murmur, no edema, no jvd GI/: active bowel sounds, no abd pain or tenderness, soft, non distended Extremities: normal range of motion, normal strength, non tender, dressing dry and intact, palpable pedal pulses Neuro/Psych: alert and oriented x 3, normal mood and affect Skin: normal color, dry Laboratory Results Last 24 Hours Test 06/05/17 07:26 White Blood Count 8.34 K/uL Red Blood Count 3.42 M/uL Hemoglobin 10.3 g/dL Hematocrit 30.7 % Mean Corpuscular Volume 89.8 fL Mean Corpuscular Hemoglobin 30.1 pg Mean Corpuscular Hemoglobin Concent 33.6 g/dl RDW Standard Deviation 43.1 fL RDW Coefficient of Variation 13.3 % Platelet Count 125 K/uL Mean Platelet Volume 9.1 fL Sodium Level 134 mmol/L Potassium Level 4.0 mmol/L Chloride Level 104 mmol/L Carbon Dioxide Level 25 mmol/L Anion Gap 6.0 mmol/L Blood Urea Nitrogen 14 mg/dl Creatinine 0.77 mg/dl Est Creatinine Clear Calc Drug Dose 74.6 ml/min Estimated GFR () 88.2 Estimated GFR (Non- 76.1 BUN/Creatinine Ratio 18.4 Random Glucose 139 mg/dl Calcium Level 8.5 mg/dl Assessment and Plan 76yo C female s/p left total knee arthroplasty performed today. Procedure well tolerated, patient is doing well without complaints s/p left TKA post op day 1 - pain control, bowel regimen, dvt prophylaxis per primary team - hgb 10.3 today down from baseline of 13 Hypertension - blood pressures wnl - continue home HCTZ-Valsartan Hyperlipidemia - Stable - continue home Simvastatin Hypothyroidism - Stable - continue Synthroid GERD - Stable - continue ppi Thrombocytopenia - patient with platelets of 125 today. She has history of the same with ranges of 103-188 in the past. No active bleeding. No petechiae -Continue to monitor, check CBC in AM Medicine will sign off, patient medically stable for discharge when appropriate from orthopedic standpoint.
[2017-06-05] MEDS: SIMVASTATIN 40 MG TAB PO SCH (20:27)
[2017-06-05 23:13] VITALS: BP 116/69; PULSE 91; TEMP 36.7; O2SAT 94
[2017-06-06] MEDS: TRAMADOL HCL 50 MG TAB PO PRN ×2 (00:17→07:44)
[2017-06-06] MEDS: ACETAMINOPHEN 500 MG TAB PO SCH (05:35)
[2017-06-06] MEDS: LEVOTHYROXINE 125 MCG TAB PO SCH (05:35)
[2017-06-06 06:16] VITALS: BP 134/72; PULSE 85; TEMP 36.5; O2SAT 94
[2017-06-06 06:44] LABS: HEMATOCRIT 27.4 % (37-47); HEMOGLOBIN 9.2 g/dL (12.0-16.0); MEAN CELL VOLUME 90.4 fL (80-100); MEAN CORPUSCULAR HEMOGLOBIN 30.4 pg (25-34); MEAN CORPUSCULAR HGB CONC 33.6 g/dl (32-36); PLATELET COUNT 100 K/uL (130-400); RED CELL DISTRIBUTION WIDTH CV 13.7 % (11.5-14.5); RED CELL DISTRIBUTION WIDTH SD 45.4 fL (36.4-46.3); WHITE BLOOD COUNT 3.78 K/uL (4.8-10.8)
[2017-06-06 07:14] LABS: CALCIUM 8.5 mg/dl (8.5-10.1); CREATININE 0.7 mg/dl (0.60-1.20)
--- NOTE | 2017-06-06 07:15 | Orthopedic Progress Note ---
Orthopedic Progress Note Date of Service Jun 06, 2017. Subjective Post OP Day: 2 Reports: feeling well, pain controlled w PO medications, Denies: complaints, chest pain, SOB, nausea / vomiting, light headedness, calf pain Objective calves soft nontender, N/V intact, capillary refill less than 2 sec., dressing C /D/I, A&O x3, toes mobile SILVERLON IN TACT BUT CRACKED Date Time Temp Pulse Resp B/P (MAP) Pulse Ox O2 Delivery O2 Flow Rate FiO2 06/06/17 06:16 36.5 85 16 134/72 (92) 94 Room Air 06/06/17 00:12 Room Air 06/05/17 23:13 36.7 91 16 116/69 (85) 94 Room Air 06/05/17 15:45 Room Air 06/05/17 15:02 36.7 91 17 118/68 (85) 93 Room Air 06/05/17 11:25 36.7 86 16 126/74 (91) 94 Room Air 06/05/17 08:45 Room Air 06/05/17 07:22 36.7 81 16 138/76 (96) 93 Room Air Laboratory Results 24 Hours: Test 06/05/17 07:26 06/06/17 06:12 Hematocrit 30.7 % 27.4 % Hemoglobin 10.3 g/dL 9.2 g/dL Assessment & Plan Assessment: POD #2, LEFT TKA Plan: PT/ OT DVT PROPH- ASA D/C PLANS- HOME TODAY W OPPT APPRECIATE MEDICINE INPUT Inhouse Planning Pain Management: Celebrex, Ultram, Morphine, PO Tylenol, Oxy IR DVT Prophylaxis: TEDs, SCDs, ASA Discharge Planning Discharge Planning: home with oppt Pain Management: Celebrex, PO Tylenol, Oxy IR DVT Prophylaxis: TEDs, ASA Therapy: Physical Therapy, Occupational Therapy
[2017-06-06] MEDS ORDERED: ASPI-320 PO (07:17)
[2017-06-06] MEDS ORDERED: ULT50X PO (07:17)
[2017-06-06] MEDS ORDERED: CLB200 PO (07:17)
[2017-06-06] MEDS ORDERED: ACET-24 PO (07:17)
--- NOTE | 2017-06-06 07:18 | Discharge Instructions ---
Discharge Instructions Date of Service Jun 06, 2017. Admission Reason for Admission: Left Knee Degenerative Joint Disease Discharge Discharge Diagnosis / Problem: LEFT TKA Discharge Goals Goal(s): Improve function Activity Recommendations Activity Limitations: as noted below . Instructions / Follow-Up Instructions / Follow-Up ACTIVITY RECOMMENDATIONS: SELF CARE INSTRUCTIONS AFTER TOTAL KNEE REPLACEMENT A. You may need to continue a physical therapy program after discharge from the hospital. There are several options available to you. Your doctor will assist you in selecting the best one for you. 1. An out-patient facility 2 to 3 times a week for therapy or home therapy. 2. Continue working on all exercises taught to you in the hospital. Your goals should be to increase bending of your knee to 90 degrees and beyond and to fully straighten your knee. B. You may progress at your own pace from walking with a walker or crutches to a cane; then to no assistive devices. C. Make walking a part of your daily routine. Be up as much as comfortable with rest periods throughout the day. Rest with leg elevation is very important. Use the ice wrap frequently for the first 3-4 weeks. D. There are no restrictions on activities. You may ride in a car, shop, participate in cafe helper and all social activities. E. Wear the long elastic stockings (TONIA hose) 20 hours a day for 2 weeks after surgery. They can be removed several times a day for laundering and for a bath. F. You may shower, no tub baths until cleared by your doctor. SPECIAL CARE INSTRUCTIONS: VERY IMPORTANT TO READ AND REVIEW A. There are a few signs you need to watch for after you are home. Call [facility] if you notice any of the followin. Increased severe knee pain. Some pain is expected especially when you exercise. 2. Increased swelling in your leg or knee; pain or swelling of the calf muscle in either lower leg. 3. Any fluid drainage from the incision. 4. Shortness of breath or chest pain. B. Please call [facility] at if you have any concerns or questions about your operation or recovery. The doctor or his nurse will return your call promptly. C. You must take antibiotics before dental work, bladder, bowel or other surgery. Your doctor will provide you with a permanent care to carry describing this precaution. IMPORTANT: * REMEMBER TO TAKE ASPIRIN, 81 MG, TWICE DAILY FOR 4 WEEKS UNLESS OTHERWISE DIRECTED. THIS IS YOUR BLOOD THINNER. * HIGH RISK PATIENTS MAY BE PRESCRIBED A STRONGER BLOOD THINNER. THIS WILL BE PROVIDED AT DISCHARGE. * CALL IF INCREASED PAIN, REDNESS, DRAINAGE OR FEVER GREATER THAT 101. * WEAR TONIA HOSE 20 HOURS PER DAY FOR 2 WEEKS. * YOU MAY HAVE A LARGE BAND-AID LIKE DRESSING (SILVERON). THIS WILL REMAIN ON YOUR INCISION FOR 7 DAYS, THEN CAN BE REMOVED. IF INCISION IS LEAKING THROUGH DRESSING, CALL THE OFFICE . FOLLOW UP VISIT: If appointment is not already scheduled: Please call [facility] to make a follow-up appointment for 2 weeks after your surgery at . Current Hospital Diet Patient's current hospital diet: Regular Diet Discharge Diet Recommended Diet: Regular Diet Procedures Procedures Performed: left total knee arthroplasty,lateral release Pending Studies Studies pending at discharge: no Laboratory Results Hemoglobin A1c Test 05/02/17 15:23 Range/Units Estimated Average Glucose 111 mg/dl Hemoglobin A1c 5.5 4.5-5.6 % Medical Emergencies . Who to Call and When: Medical Emergencies: If at any time you feel your situation is an emergency, please call 911 immediately. . Non-Emergent Contact Non-Emergency issues call your: Primary Care Provider . "Provider Documentation" section prepared by [place]. . [place] Drug Monitoring Program Search Results: patient reviewed within database, no issues identified
[2017-06-06] MEDS: VALSARTAN 80 MG TAB PO SCH (07:45)
[2017-06-06] MEDS: PANTOprazole SOD 40 MG TAB PO SCH (07:47)
[2017-06-06] MEDS: MULTIVITAMIN TAB PO SCH (07:47)
[2017-06-06] MEDS: HYDROCHLOROTHIAZIDE 25 MG TAB PO SCH (07:47)
[2017-06-06] MEDS: DOCUSATE SODIUM 100 MG CAP PO SCH (08:18)
[2017-06-06] MEDS: CeleBREX 200 MG CAP PO SCH (08:18)
[2017-06-06] MEDS: ASPIRIN 81 MG ECTAB PO SCH (08:18)
--- NOTE | 2017-06-06 10:16 | Clinical Documentation Query ---
ARMOND, ALEKSANDR : CLINICAL DOCUMENTATION QUERY Patient is a 76 year old female who on 06/04 underwent left TKA. Preoperative H&H was 13.0 g/dl and 38.4%. POD #2, repeat values are 9.2 g/dl and 27.4%. Total documented blood loss to date is 325 ml's. Additionally, net I/O is positive for 1,388 ml's. As appropriate, consider documentation as suggested below. Thank you. In your clinical opinion is this patient being managed for: ( ) Acute blood loss and hemodilutional anemia ( ) Not Agree ( ) Other explanation of clinical findings (Please Explain) ( ) Unable to determine (Please Define) ( ) Need to Discuss The medical record reflects the following clinical findings, treatment, and risk factors. Clinical Indicators: As above Treatment: Serial hematology, I/O Risk Factors: As above Please clarify and document your clinical opinion in the progress notes and discharge summary. Terms such as "probable", "suspected", "likely", "questionable", "possible", or "still to be ruled out" are acceptable. IF IN AGREEMENT, YOU MUST DOCUMENT ABOVE DIAGNOSTIC STATEMENT IN DAILY PROGRESS NOTES AND DISCHARGE SUMMARY. This document is not part of the patient's record. Thank You, Jarrett Baumann, RN [phone]
[2017-06-06 11:10] VITALS: BP 134/72; PULSE 85; TEMP 36.5; O2SAT 94
== END 2017-06-06 12:15 | disposition home or self-care (01) | DRG 470 ==
LOC: C.ACU 11:47 → C.MSW 15:34 → ENRESERV 15:54
PROVIDERS: ADMIT Orthopaedic Surgery Sports Medicine; ATTEND Orthopaedic Surgery Sports Medicine
PROC: 0SRD0J9 Replacement of Left Knee Joint with Synthetic Substitute, Cemented, Open Approach (ICD-10-PCS; principal; 2017-06-04 14:00)
DX: M17.12 Unilateral primary osteoarthritis, left knee (principal); D69.6 Thrombocytopenia, unspecified; I10 Essential (primary) hypertension; E78.5 Hyperlipidemia, unspecified; E03.9 Hypothyroidism, unspecified; K21.9 Gastro-esophageal reflux disease without esophagitis; Z79.82 Long term (current) use of aspirin; Z79.899 Other long term (current) drug therapy; Z96.651 Presence of right artificial knee joint

== ENCOUNTER → 2017-09-23 | Outpatient (CLI) | payer OTHER, MEDICARE ==
[~2017-09-23] MED LIST changes: +ACET-24 PO; -ACET1TAB84 PO; -ACETAMINOPHEN 500 MG TAB PO SCH; +ASPI-320 PO; -ASPI81TA28 PO; -ATROPINE SULFATE 0.1 MG/ML 5ML SYR IV PRN; -BUPIVACAINE 0.25% 30 ML VIAL ONE; -BUPIVACAINE 0.5 % 5 MG/1 ML PF 10ML VIAL ONE; -CEFAZOLIN 2000MG IV PUSH 15 ML IV SCH; +CLB200 PO; -CeleBREX 200 MG CAP PO SCH; -DEXAMETHASONE 4 MG TAB PO SCH; -EpHEDrine SULFATE INJ 50 MG/ML AMP IV PRN; -FAMOTIDINE 20 MG TAB PO SCH; -GABAPENTIN 300 MG CAP PO SCH; -LACTATED RINGER'S 1000ML 1,000 ML IV SCH; -LACTATED RINGER'S 1000ML 500 ML IV SCH; -METOCLOPRAMIDE HCL 10 MG TAB PO SCH; -ROPIVACAINE 5MG/ML 30 ML 150 MG, BUPIVACAINE 0.5% MPF INJ 30 ML, EpINEphrine HCL INJ 0.... INFIL SCH; +ULT50X PO
--- NOTE | 2017-09-23 15:22 | MAMMOGRAPHY REPORT ---
BILATERAL DIGITAL SCREENING MAMMOGRAM TOMOSYNTHESIS WITH CAD: 09/23/2017 CLINICAL HISTORY: Routine screening. TECHNIQUE: The study was acquired using full field digital technology and interpreted from soft copy. Breast tomosynthesis in addition to standard 2D mammography was performed. Current study was also ev aluated with a Computer Aided Detection (CAD) system. COMPARISON: Comparison is made to exams dated: 09/03/2016 mammogram, 08/31/2015 mammogram, 08/29/2014 dannie mogram, 08/26/2013 mammogram, 08/21/2012 mammogram, and 08/19/2011 mammogram - [facility] er. BREAST COMPOSITION: The tissue of both breasts is heterogeneously dense, which may obscure small mass es. FINDINGS: There is stable asymmetry in the lateral, posterior left breast on the CC view. A few stab le microcalcifications in the right breast. No new suspicious mass, architectural distortion or clust er of microcalcifications is seen. IMPRESSION: ACR BI-RADS CATEGORY 1: NEGATIVE There is no mammographic evidence of malignancy. A 1 year screening mammogram is recommended.( 019) The patient will receive written notification of the results. Some breast cancers are not detected with mammography. A negative mammographic report should not hardy y biopsy if a clinically suggestive mass is present. Courtney Alcocer M.D. ay/:09/23/2017 15:05:35 Elementary Assistant Teacher: RT Vito(Jones)(M), [facility] letter sent: Normal 1/2 BI-RADS Code: ACR BI-RADS Category 1: Negative
== END | disposition home or self-care (01) ==
LOC: C.MAMM 13:35
PROVIDERS: ATTEND Internal Medicine
DX: Z12.31 Encounter for screening mammogram for malignant neoplasm of breast (principal)

== ENCOUNTER 2022-03-06 11:20 | Inpatient (IN) ==
--- NOTE | 2022-02-13 10:06 | PAT Medication Instructions ---
Medication Instructions Date of Service February 13, 2022 Home Medications Medication Instructions Recorded zoledronic acid 4 mg/5 mL 5 mg (6.25 mL) IV .annually #6.25 07/08/21 intravenous solution mL atorvastatin 20 mg tablet 20 mg PO QPM #90 tabs 11/02/21 ergocalciferol (vitamin D2) 1,250 1,250 mcg PO .weekly 12 weeks #14 11/09/21 mcg (50,000 unit) capsule caps acetaminophen 500 mg tablet (Tylenol Extra Strength) 500 mg PO Q6H PRN Pain zoledronic acid 4 mg/5 mL intravenous solution 5 mg (6.25 mL) IV .annually atorvastatin 20 mg tablet 20 mg PO QPM ergocalciferol (vitamin D2) 1,250 mcg (50,000 unit) capsule 1,250 mcg PO .weekly celecoxib 200 mg capsule 200 mg PO QAM cholecalciferol (vitamin D3) 50 mcg (2,000 unit) capsule 50 mcg PO QAM cyanocobalamin (vitamin B-12) 2,000 mcg tablet 2,000 mcg PO QAM levothyroxine 125 mcg tablet 125 mcg PO QAM omeprazole 20 mg capsule,delayed release 20 mg PO QAM valsartan 160 mg-hydrochlorothiazide 25 mg tablet 1 tab PO QAM Continue as directed zoledronic acid 4 mg/5 mL intravenous solution 5 mg (6.25 mL) IV .annually ASK your surgeon for instructions celecoxib 200 mg capsule 200 mg PO QAM DO NOT take the morning of surgery ergocalciferol (vitamin D2) 1,250 mcg (50,000 unit) capsule 1,250 mcg PO .weekly cholecalciferol (vitamin D3) 50 mcg (2,000 unit) capsule 50 mcg PO QAM cyanocobalamin (vitamin B-12) 2,000 mcg tablet 2,000 mcg PO QAM valsartan 160 mg-hydrochlorothiazide 25 mg tablet 1 tab PO QAM Take morning of surgery With a small sip of water, OTHERWISE NOTHING TO EAT OR DRINK AFTER MIDNIGHT: acetaminophen 500 mg tablet (Tylenol Extra Strength) 500 mg PO Q6H PRN Pain (if needed) levothyroxine 125 mcg tablet 125 mcg PO QAM omeprazole 20 mg capsule,delayed release 20 mg PO QAM Take evening before surgery acetaminophen 500 mg tablet (Tylenol Extra Strength) 500 mg PO Q6H PRN Pain (if needed) atorvastatin 20 mg tablet 20 mg PO QPM Other Notes If you have any questions please call us at [phone] or [phone] or [phone] or [phone]
--- NOTE | 2022-03-01 14:02 | Anesthesiology Consultation ---
Date of Service March 01, 2022 Assessment & Plan (1) Encounter for pre-operative examination: - COVID screening: Per assessment on 03/01: No known COVID-19 positive contacts or current COVID-19 related symptoms. Travel screen negative. Patient vaccinated. At surgeon discretion if preop Covid testing being done. - S/P Left TKA (06/04/17): SAB + PNB at [facility]. No issues noted per post-op anesthesia progress note. - Outpatient joint assessment: Pt currently scheduled for inpatient pathway. If surgeon requests review for outpatient joint pathway, patient is acceptable candidate for outpatient joint program from anesthesia standpoint depending on appropriate post-op home support. - PCP office visit (02/14/22): "Revised Cardiac Index = 0.. Interpretation:This score belongs toClass Iof risk for perioperative cardiac events with arisk percentage of 0.4%.. vital signs reviewed and were stable today.. from a general medical standpoint, patient cleared for surgery.. CXR and EKG done today and reviewed... EKG repeated today and stable. No recent CXR. CXR done after visit today with bibasilar thickening, likely chronic as patient has no acute lung complaints." Chart Review Chart Review: Acceptable Risk for Surgery and Patient seen in Pre Admission Testing Teaching & Discussion Pre-Anesthesia Teaching/Discussion Notes: Instructed NPO after midnight before surgery,except medications with 15 cc of water. Medication instructions provided according to the PAT guidelines. History Surgery Operation Date: 03/06/22 14:10 Proposed Procedures p Right Reversed Total Shoulder Arthroplasty - Nacho Rdz MD Height/Weight Height: 5 ft 5.5 in Weight: 100.9 kg Allergies Allergy/AdvReac Type Severity Reaction Status Date / Time No Known Drug Allergies Allergy Verified 02/14/22 09:32 Medications Home Medications Medication Instructions Recorded Confirmed Last Taken acetaminophen 500 mg tablet 500 mg PO Q6H PRN Pain 01/18/20 02/14/22 Unknown (Tylenol Extra Strength) zoledronic acid 4 mg/5 mL 5 mg (6.25 mL) IV .annually #6.25 07/08/21 02/14/22 Unknown intravenous solution mL atorvastatin 20 mg tablet 20 mg PO QPM #90 tabs 11/02/21 02/14/22 Unknown celecoxib 200 mg capsule 200 mg PO QAM 02/11/22 02/14/22 Unknown cholecalciferol (vitamin D3) 50 50 mcg PO QAM 02/11/22 02/14/22 Unknown mcg (2,000 unit) capsule cyanocobalamin (vitamin B-12) 2,000 mcg PO QAM 02/11/22 02/14/22 Unknown 2,000 mcg tablet levothyroxine 125 mcg tablet 125 mcg PO QAM 02/11/22 02/14/22 Unknown omeprazole 20 mg capsule,delayed 20 mg PO QAM 02/11/22 02/14/22 Unknown release valsartan 160 1 tab PO QAM #90 tabs 02/13/22 02/14/22 Unknown mg-hydrochlorothiazide 25 mg tablet Past Medical History Medical History Gastroesophageal reflux disease Generalized osteoarthritis of multiple sites Hypercholesterolemia Hypertension Hypothyroidism Osteopenia Exercise / Class Metabolic Activity II 4-5 Yardwork/Stairs/Walk up hill (one FS (no CP, no SOB)) Past Family History Family History Father Myocardial infarction Hypertension Mother Hypertension Brother Hypertension Kidney disease Lung cancer Denies family history of Ovarian cancer Prostate cancer Diabetes Breast cancer Colorectal cancer Past Surgical History Surgical History H/O total knee replacement Bilateral TKA History of carpal tunnel release RIGHT History of cataract surgery bilateral cataract extraction/eye lid lift History of colonoscopy History of hernia repair Hx of thumb surgery RIGHT S/P cholecystectomy S/P hysterectomy S/P lateral meniscal repair LEFT Past Anesthesia History No Hx of Anesthesia Complications and No Family Hx of Anesthesia Complications History of PONV No Hx of PONV and No Hx of Motion Sickness Social History Smoking Status: Never smoker Do You Dip or Chew Tobacco: No Hx Alcohol Use: No Hx Substance Use: No substance use type: does not use Review of Systems Patient denies chest pain, shortness of breath, dyspnea on exertion, fever, chills, cough, wheezing, palpitations. Physical Exam Vital Signs VITALS BP 138/73 P 81 TEMP 98.3 SP02 95%RA RESP 18 PHYSICAL Full cervical extension range of motion. Full TMJ range of motion. TMD 3 finger breaths Mallampati Score 3 Dentition: upper partial Lungs: clear throughout to auscultation Cardiac: regular rate and rhythm, no murmurs noted Spine: normal Carotid arteries: negative bruit Extremities: no edema Lab Results Anesthesia Preop Results Results Anesthesia Widget: WBC 4.88 K/ul (4.8-10.8) 03/01/22 Hgb 12.1 g/dl (12.0-16.0) 03/01/22 Hct 35.5 % (34.1-44.9) 03/01/22 Plt 169 K/uL (130-400) 03/01/22 Na 137 mmol/L (136-145) 03/01/22 K 3.7 mmol/L (3.5-5.1) 03/01/22 Cl 102 mmol/L (98-107) 03/01/22 CO2 29 mmol/L (21-32) 03/01/22 BUN 16 mg/dl (6-23) 03/01/22 Creat 0.66 mg/dl (0.6-1.2) 03/01/22 Glucose Level 99 mg/dl (70-99(Fasting)) 03/01/22 PT 10.7 Seconds (9.0-12.0) 03/01/22 PTT 29.9 Seconds (21.0-31.0) 03/01/22 INR 1.0 (0.9-1.1) 03/01/22 HA1c 5.8 % (4.5-5.6) H 03/01/22 Urine Color Yellow 03/01/22 Urine Appearance Clear (Clear) 03/01/22 Urine pH 7.5 (4.5-7.5) 03/01/22 Urine Specific [place] 1.018 (1.000-1.030) 03/01/22 Urine Protein Negative (Negative) 03/01/22 Urine Glucose (UA) Negative (Negative) 03/01/22 Urine Ketones Negative (Negative) 03/01/22 Urine Blood Negative (Negative) 03/01/22 Urine Nitrite Negative (Negative) 03/01/22 Urine Bilirubin Negative (Negative) 03/01/22 Urine Urobilinogen Negative (Negative) 03/01/22 Urine Leukocyte Esterase Trace (Negative) H 03/01/22 Urine WBC (Auto) 1-5 /hpf (0-5) 03/01/22 Urine RBC (Auto) 0-4 /hpf (0-4) 03/01/22 Urine Hyaline Casts (Auto) 1-5 /lpf (0-5) 03/01/22 Urine Epithelial Cells (Auto) >30 /lpf (0-5) H 03/01/22 Urine Bacteria (Auto) 4+ (Negative) H 03/01/22 Blood Type O Positive 03/01/22 Antibody Screen NEGATIVE 03/01/22 Testing Laboratory Results Surgeon's office made aware of abnormal UA* Electrocardiogram Date: 02/14/22 Sinus rhythm at 87 bpm. Possible LAE. Inferior TN, probably old per report. 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 No pleural fusions. The cardiac silhouette remains mildly enlarged. No evidence for pulmonary edema. Mild diffuse interstitial thickening most pronounced within the lung bases with a few left basilar linear densities. This has slightly progressed in the interval. Prior cholecystectomy. There is a small hiatus hernia. IMPRESSION:Mild bibasilar interstitial thickening which has slightly progressed in the interval. This nonspecific and could be due to chronic interstitial change or a low-grade pneumonitis. Done by PCP for preop. Per PCP note, "CXR done after visit today with bibasilar thickening, likely chronic as patient has no acute lung complaints"- pt deemed "cleared" for surgery by PCP. Stress Test Date: 06/13/16 Type: DSE Negative DSE for myocardial ischemia. 80% MPHR. EF 55 to 60%. Negative stress EKG. Mild LVH. Mild MR/TR. COVID-19 Risk Screen Screening Information COVID-19 Screen Date: 03/01/22 Exposure 21 Days Family/Household +COVID Last 21 Days: No Exposure 10 Days Any COVID Exposure Last 10 Days: No Symptoms Last 10 Days Experienced COVID Sx Last 10 Days: No + COVID 0-90 Days COVID + in Last 0-90 Days: No
--- NOTE | 2022-03-05 19:39 | History & Physical Report ---
Date of Service March 05, 2022 Assessment & Plan (1) Right rotator cuff tear arthropathy: Plan: Treatment options discussed with the patient. She has failed conservative measures and like to proceed with surgical intervention. Risks, benefits and alternatives to surgery including but not limited to infection, DVT, pain, stiffness, need for revision surgery, damage to blood vessels, damage to nerves, PE, , were discussed with the patient and they wish to proceed. Plan for right reverse total shoulder arthroplasty scheduled for [facility] on March [address] Rdz. All questions were answered. Patient will follow-up postoperatively. History of Present Illness Chief Complaint: Right shoulder pain Primary Care Provider: Poornima Fontenot MD 81-year-old female with past medical history significant for hypertension, GERD, high cholesterol, hypothyroidism, osteopenia who presents with ongoing right shoulder pain. Pain is interfering with her daily activities. She has failed conservative measures including steroid injections. She would like to proceed with surgical invention. Patient denies headaches, sweats, fevers, chills, double vision, blurred vision, cough, sore throat, dysphagia, chest pain, sob, wheezing, n/v/d/c, numbness, tingling, fatigue, urinary symptoms, mood disorders. ROS positive for right shoulder pain and stiffness. Allergies Allergy/AdvReac Type Severity Reaction Status Date / Time No Known Drug Allergies Allergy Verified 02/14/22 09:32 Home Medications Medication Instructions Recorded Confirmed Type acetaminophen 500 mg tablet 500 mg PO Q6H PRN Pain 01/18/20 02/14/22 History (Tylenol Extra Strength) zoledronic acid 4 mg/5 mL 5 mg (6.25 mL) IV .annually #6.25 07/08/21 02/14/22 Rx intravenous solution mL atorvastatin 20 mg tablet 20 mg PO QPM #90 tabs 11/02/21 02/14/22 Rx celecoxib 200 mg capsule 200 mg PO QAM 02/11/22 02/14/22 History cholecalciferol (vitamin D3) 50 50 mcg PO QAM 02/11/22 02/14/22 History mcg (2,000 unit) capsule cyanocobalamin (vitamin B-12) 2,000 mcg PO QAM 02/11/22 02/14/22 History 2,000 mcg tablet levothyroxine 125 mcg tablet 125 mcg PO QAM 02/11/22 02/14/22 History omeprazole 20 mg capsule,delayed 20 mg PO QAM 02/11/22 02/14/22 History release valsartan 160 1 tab PO QAM #90 tabs 02/13/22 02/14/22 Rx mg-hydrochlorothiazide 25 mg tablet Past Med/Surg History Medical History Gastroesophageal reflux disease Generalized osteoarthritis of multiple sites Hypercholesterolemia Hypertension Hypothyroidism Osteopenia Surgical History H/O total knee replacement Bilateral TKA History of carpal tunnel release RIGHT History of cataract surgery bilateral cataract extraction/eye lid lift History of colonoscopy History of hernia repair Hx of thumb surgery RIGHT S/P cholecystectomy S/P hysterectomy S/P lateral meniscal repair LEFT Family History Father Myocardial infarction Hypertension Mother Hypertension Brother Hypertension Kidney disease Lung cancer Denies family history of Ovarian cancer Prostate cancer Diabetes Breast cancer Colorectal cancer Social History Smoking Status: Never smoker Second Hand Exposure: No; Hx Alcohol Use: No Hx Substance Use: No Preferred Language: Senegalese Communication Ability: Effective Aboriginal Liaison Officer Required: No Beliefs That Will Affect Care: None marital status: Current Living Situation: Spouse current occupational status: retired current occupation: customer service Feels Safe at Home: Yes Childhood Exposure to Second-Hand Smoke: Yes caffeine: Yes Dental Care, Regularly: Yes Physical Activity Frequency: 3-4 Times per Week Physical Activity Frequency Comment: lives in a 4 story house, walks alot of stairs Seatbelt Use: always Sunscreen Use: Yes Assistive Devices: Glasses Review of Systems All systems reviewed & are unremarkable except as noted in HPI & below Physical Exam Constitutional: well developed and well nourished; no acute distress Eyes: PERRL, conjunctivae normal, anicteric sclerae ENMT: external ear and nose normal, oropharynx normal Neck: trachea midline, no thyromegaly Respiratory: normal respiratory effort, lungs clear to auscultation Cardiovascular: RRR, no murmur, no edema Musculoskeletal: Right shoulder: Positive impingement signs. Active range of motion to 170 degrees of forward flexion, 80 degrees of abduction, weakness and pain with strength testing. 4+/5 external rotation, 5/5 internal rotation, 4+/5 abduction. Tenderness anterolateral acromion. Skin: no rashes, warm and dry Neurologic: patellar DTR's 2+ bilat, sensation intact Psychiatric: A+Ox3, euthymic affect Results & Data ([facility]) Diagnostic Findings Right shoulder radiographs demonstrate moderate to severe AC joint osteoarthritis with subacromial spurring. MRI demonstrates a large retracted full-thickness tear of her rotator cuff with fatty atrophy.
[~2022-03-06 11:20] MED LIST changes: -ACET-24 PO; +ACETAMINOPHEN 500 MG TAB PO SCH; -ASPI-320 PO; +BUPIVACAINE 0.5 % 5 MG/1 ML PF 10ML VIAL ONE; -CLB200 PO; +CeleBREX 200 MG CAP PO SCH; +FAMOTIDINE 20 MG TAB PO SCH; +GABAPENTIN 300 MG CAP PO SCH; -LEVO125T72 PO; +LR 15ML/HR IV SCH; +METOCLOPRAMIDE HCL 10 MG TABLET PO SCH; -PRLSR20 PO; -SALI1SPR15 NAE; -SIMV40TA2 PO; +TRANEXAMIC ACID 1,000 MG **IV Intra-op IV SCH; +TRANEXAMIC ACID 1,000 MG **IV Pre-op IV SCH; -ULT50X PO; -VALS160T58 PO; +ceFAZolin 2000MG 2,000 MG/15 ML SYR IV SCH; +dexAMETHasone 4 MG TAB PO SCH
--- NOTE | 2022-03-06 11:34 | History & Physical Bridge Note ---
Date of Service March 06, 2022 History & Physical Bridge Note I have examined the patient, reviewed the History & Physical and in the interval since the performance of the History & Physical I have noted the following changes of clinical significance: no changes noted
[2022-03-06] MEDS ORDERED: LIDOCAINE 2% MPF LOCAL 5 ML VIAL INFIL ONE (12:37)
[2022-03-06] MEDS ORDERED: fentaNYL citrate 100 MCG/2 ML VIAL ONE (12:37)
[2022-03-06] MEDS ORDERED: ONDANSETRON INJ 2 MG/ML 2 ML VIAL ONE (12:37)
[2022-03-06] MEDS ORDERED: ROCURONIUM BROMIDE 10 MG/ML 5 ML VIAL IV ONE (12:37)
[2022-03-06] MEDS ORDERED: MIDAZOLAM HCL 1 MG/ML 2ML VIAL ONE (12:37)
[2022-03-06] MEDS ORDERED: PROPOFOL IV EMULSION 10 MG/ML 20 ML VIAL IV ONE (12:37)
[2022-03-06] MEDS ORDERED: ePHEDrine sulfate 50 MG/ML AMP ONE (13:21)
[2022-03-06] MEDS ORDERED: DEXAMETHASONE SOD INJ 4 MG/ML VIAL ONE (14:57)
--- NOTE | 2022-03-06 15:55 | Operative Report ---
Post Operative Report Pre & Post Diagnosis Operation Date: 03/06/22 14:00 Pre-Op Diagnosis: Right Shoulder Rotator Cuff arthropathy, chronic rotator cuff tear, subacromial impingement Post-Op Diagnosis: Right Shoulder Rotator Cuff arthropathy, chronic rotator cuff tear, subacute impingement, biceps tendinopathy with tenosynovitis I identified the patient and participated in the time-out.: Yes Procedure Operation Date: 03/06/22 14:00 Actual Procedures p Right Reversed Total Shoulder Arthroplasty(Right), biceps tenodesis, excision subacromial bone spurs- Nacho Rdz MD Surgeon Nacho Rdz MD Operations Scheduler Jose CHAKRABORTY Estimated Blood Loss 150 Findings Consistent with Post-Op Diagnosis Specimens Humeral head Drains 2 Hemovac Anesthesia Type General Regional Complications none Disposition Accompanied Patient To Recovery: No Disposition: Recovery Room Indications 81-year-old female with chronic right shoulder pain failed conservative ma nagement. X-rays demonstrate some proximal migration humerus and narrowing of the proximal glenohumeral joint space and the MRI demonstrates chronic retracted supraspinatus tendon tear with rotator cuff tendinopathy and subacromial spurs causing impingement. Description of Procedure The patient was taken to the operating room and anesthetized under regional block and general anesthetic. The patient was positioned on the operating table in a 30 beach chair position with a towel roll under the medial border of the right scapula. The arm was draped free to be able to manipulate the shoulder as needed. The right upper extremity was prepped and draped in usual sterile fashion. Exam demonstrated forward flexion to 170 degrees abduction to 90 degrees internal/external rotation 75 degrees. An anterior deltopectoral approach was performed. A longitudinal incision was made in the deltopectoral interval. The skin was incised sharply. Subcutaneous flaps were elevated off the fascia. The cephalic vein was dissected out and retracted lateral with the deltoid. The clavipectoral fascia was divided at the lateral margin of the conjoined tendon and extended up to the CA ligament. The following findings were noted: Subscapularis tendon was intact a small strip of supraspinatus tendon was intact adjacent to the rotator interval. There was a large tear extending from the posterior supraspinatus into the infraspinatus which was partially torn as well. The teres minor was still intact. The upper centimeter of the pectoralis was released for inferior exposure. A self-retaining retractor was placed. The biceps tendon findings demonstrated chronic tenosynovitis around the biceps and the intra-articular biceps was widened and had splitting and tendinopathy. the biceps tendon was tenodesed to the pectoralis tendon with #2 FiberWire. The proximal biceps was resected. The subscapularis muscle fibers were split longitudinally at the level of the circumflex vessels. The circumflex vessels were identified and tied off with silk ties and divided laterally. A Kitner elevator was used to free up the inferior fibers of the subscapularis off of the capsule. The axillary nerve was identified with a tug test and protected with a blunt Matt retractor between the nerve and the capsule. The subscapularis tendon was then taken down off of the lesser tuberosity subperiosteally, a Vicryl traction suture was placed and a subperiosteal dissection was performed along the neck of the humerus as the arm was gradually externally rotated exposing the humeral head. The humeral head findings demonstrated grade III chondromalacia with articular thinning more notable superiorly on the head. Minor inferior osteophytes were noted and removed with a rongeur. A Alejandre elevator was used to assist in releasing the capsule of the neck of the humerus. The capsule was divided with Franco scissors down to the glenoid released off the anterior glenoid and the rotator interval was released to meet the capsular release and a 360 release of the subscapularis was accomplished. A Fukuda retractor was placed into the joint retracting the humeral head posterior. Glenoid findings demonstrated intact glenoid articular cartilage some chondromalacia of the superior aspect of the glenoid articular cartilage. The labrum and biceps tendon was resected. an anterior-inferior and posterior inferior capsular release were performed with electrocautery and a Alejandre elevator on bone with the axillary nerve protected inferiorly by the retractor. Attention was then taken to the humeral preparation. The cutting guide was placed into the humeral head. It was positioned at 20 of retroversion. Oscillating saw was used to resect the humeral head giving the cut above the level of the posterior rotator cuff insertion site. The humerus was then prepared for the stem. I used the ascend flex stem from [employer]. The sizing broaches were used followed by trial broaches up to a size 3B long which had the appropriate fit and fill. The appropriate sized cut protector was placed. The humerus was then retracted posterior to the glenoid. The glenoid was sized for a 25 mm baseplate. The guide for the baseplate was positioned in a 10 inferior tilt and the central drill hole was made. The reamer for the 25 mm baseplate was used. The central drill was widened for the peg. The 25 mm hydroxyapatite coated aequalis Tornier baseplate was impacted into position. The base plate was transfixed with superior and inferior locking screws and anterior and posterior compression screws with stable fixation. The fan reamer was used for the 36 millimeter glenoid sphere. After irrigation the 36 mm standard glenoid sphere was impacted onto the baseplate and the security screw was tightened. Attention was taken back to the humerus. The cut protector was removed and the +0 high offset humeral tray trial was assembled to the trial stem rotated appropriately to get bony coverage and then screwed in position. A trial reduction was performed. A +6 trial insert demonstrated good stability and no shuck. There was some subacromial impingement when the arm is abducted and rotated due to the very large inferior acromial spur so I used a conjoined tendon retractor to retract the deltoid and used electrocautery to free up some of the CA ligament fibers off the large spur and then removed it with a rongeur from underneath the acromion without taking any the deltoid off. The smooth out the undersurface and with the arm at 90 degrees I was able to rotate the arm internal/external rotation without any catching on the acromion. The trials were removed. 3 drill holes are made into the harder bone in the bicipital groove area and 3 #5 FiberWire sutures were placed transosseously. The canal was irrigated with pulsatile saline solution. The final component was assembled. The final component was plus or high offset tray similar to the 3B long ascend flex Tornier stem. This was then impacted into the humerus with a tight press-fit. It was reduced to the glenoid sphere. Stability was verified. Subscapularis was repaired with the #5 FiberWire sutures using Tj-Donovan suture technique. Some of the rotator cuff that was torn was able to be rotated back and so to the infraspinatus and with transosseous suture to the greater tuberosity to improve external rotation strength. Lateral row soft tissue repair was performed with #2 FiberWire [id number] sutures. The pectoralis was repaired with #2 FiberWire [id number] sutures reinforcing the biceps tendon tenodesis. The arm was taken through a range of motion which demonstrated 150 degrees forward flexion 100 degrees abduction and 50 degrees external rotation 40 degrees internal rotation without any tension on repair. The implant was stable through the range of motion tested. The wound was copiously irrigated. 2 Hemovac drains were placed. The deltopectoral interval was closed with [id number] #1 Vicryl sutures. The subcutaneous tissues were closed with 2-0 Vicryl sutures. The skin was closed with brandy. Sterile dressings were applied and a shoulder immobilizer. Jose CHAKRABORTY my physician fws faculty assistant acted as registered nurse first assistant throughout the procedure .He performed functions including patient positioning, arm positioning, prepping and draping, soft tissue retraction, instrument management, suture management and performed the subcutaneous and skin closure and will participate in the postoperative care of the patient. I attest to the content of the Intraoperative Record and any orders documented therein. Any exceptions are noted below.
--- NOTE | 2022-03-06 16:46 | Anesthesiology Progress Note ---
Date of Service March 06, 2022 Anesthesia Post Procedure Vital Signs Vital Signs: Temp Pulse Pulse Resp BP Pulse Ox O2 Del Method 03/06/22 16:35 83 14 135/71 93 Nasal Cannula 03/06/22 16:25 36.3 C L 86 15 140/79 93 Room Air 03/06/22 16:15 82 13 135/80 97 Oxymask 03/06/22 16:05 85 14 134/76 99 Oxymask 03/06/22 15:56 36.0 C L 86 16 133/79 99 Oxymask 03/06/22 12:00 36.8 C 90 20 121/82 94 Room Air O2 Flow Rate 03/06/22 16:35 2 03/06/22 16:25 03/06/22 16:15 4 03/06/22 16:05 6 03/06/22 15:56 6 03/06/22 12:00 Transfer of Care Handoff Completed per policy Notes Mental Status: alert / awake / arousable Patient Amnestic to Procedure: Yes Nausea / Vomiting: adequately controlled Pain: adequately controlled Airway Patency, RR, SpO2: stable & adequate BP & HR: stable & adequate Hydration State: stable & adequate Anesthetic Complications: no major complications apparent
[2022-03-06] MEDS ORDERED: oxyCODONE HCL IR 5 MG TAB (IMMEDIATE RELEASE) PO PRN (17:21)
[2022-03-06] MEDS ORDERED: ONDANSETRON INJ 2 MG/ML 2 ML VIAL IV PRN (17:21)
[2022-03-06] MEDS ORDERED: METOCLOPRAMIDE HCL INJ 5 MG/ML 2 ML VIAL IV PRN (17:21)
[2022-03-06] MEDS ORDERED: HYDROmorphone INJ 0.5 MG/0.5 ML SYR IV PRN (17:21)
[2022-03-06] MEDS ORDERED: MAGNESIUM HYDROXIDE SUSP 30 ML UDC PO PRN (17:21)
[2022-03-06] MEDS ORDERED: bisacodyL 10 MG SUPP PR PRN (17:21)
[2022-03-06] MEDS ORDERED: NALOXONE HCL 0.4 MG/1 ML VIAL/CARP IV PRN (17:21)
[2022-03-06] MEDS: SODIUM CHLORIDE 0.9% 1000ML 1,000 ML IV SCH (17:43)
--- NOTE | 2022-03-06 18:07 | XRay Report ---
XR shoulder RT min 2V routine CLINICAL HISTORY: Post shoulder surgery COMPARISON: Right shoulder radiographs July 18, 2021. FINDINGS: Alignment of the reverse total right shoulder arthroplasty is anatomic. Skin brandy and d rains are present. There are no unexpected radiopaque foreign bodies. There is no periprosthetic frac ture. IMPRESSION: Expected findings following reverse total right shoulder arthroplasty. ACT 112: Negative or not required by law. Electronically signed by: Anderson Melendrez M.D. 03/06/2022 6:06 PM
--- NOTE | 2022-03-06 18:08 | Hospitalist Consultation ---
Date of Consultation March 06, 2022 Assessment & Plan (1) Status post reverse total arthroplasty of right shoulder: Pain, VTE, bowel management per primary orthopedic team (2) Vitamin D deficiency: Continue vitamin D3 2000 units p.o. daily. She continues to remain low and is on zoledronic acid IV yearly. Consider (3) Gastroesophageal reflux disease: Switch omeprazole to pantoprazole 40 mg p.o. daily per hospital formulary (4) Hypercholesterolemia: Continue atorvastatin 20 mg p.o. daily (5) Hypertension: Continue valsartan 160 mg daily and hydrochlorothiazide 25 mg p.o. daily with hold parameters added (6) Hypothyroidism: TSH normal in February Continue levothyroxine 125 mcg p.o. daily (7) Vitamin B12 deficiency: Continue her usual cyanocobalamin Plan Thank you for the consult. No acute medical needs identified on chronic medications/conditions appear to be stable. We will sign off at this time. Please contact the [facility] hospitalist on-call for any concerns or questions. History of Present Illness Reason for Consultation: rt reversed tsa 03/06/22 Attending Physician: Nacho Rdz MD History of Present Illness Malgorzata Reese is a 81-year-old female who presents for elective right total shoulder arthroplasty performed today by Dr. Rdz. Estimated blood loss 150 mL. No operative complications noted. Doing well postoperatively. No dizziness or lightheadedness. No chest pain or shortness of breath. She apparently did not take her blood pressure medication this morning. Allergies Allergy/AdvReac Type Severity Reaction Status Date / Time No Known Drug Allergies Allergy Verified 03/06/22 11:54 Home Medications Medication Instructions Recorded Confirmed Type acetaminophen 500 mg tablet 500 mg PO Q6H PRN Pain 01/18/20 03/06/22 History (Tylenol Extra Strength) zoledronic acid 4 mg/5 mL 5 mg (6.25 mL) IV .annually #6.25 07/08/21 03/06/22 Rx intravenous solution mL atorvastatin 20 mg tablet 20 mg PO QPM #90 tabs 11/02/21 03/06/22 Rx celecoxib 200 mg capsule (Celebrex) 200 mg PO QAM 02/11/22 03/06/22 History cholecalciferol (vitamin D3) 50 50 mcg PO QAM 02/11/22 03/06/22 History mcg (2,000 unit) capsule cyanocobalamin (vitamin B-12) 2,000 mcg PO QAM 02/11/22 03/06/22 History 2,000 mcg tablet levothyroxine 125 mcg tablet 125 mcg PO QAM 02/11/22 03/06/22 History omeprazole 20 mg capsule,delayed 20 mg PO QAM 02/11/22 03/06/22 History release valsartan 160 1 tab PO QAM 03/06/22 03/06/22 History mg-hydrochlorothiazide 25 mg tablet (Diovan HCT) Patient History Medical History Gastroesophageal reflux disease Generalized osteoarthritis of multiple sites Hypercholesterolemia Hypertension Hypothyroidism Osteopenia Surgical History H/O total knee replacement Bilateral TKA History of carpal tunnel release RIGHT History of cataract surgery bilateral cataract extraction/eye lid lift History of colonoscopy History of hernia repair Hx of thumb surgery RIGHT S/P cholecystectomy S/P hysterectomy S/P lateral meniscal repair LEFT Family History Father Myocardial infarction Hypertension Mother Hypertension Brother Hypertension Kidney disease Lung cancer Denies family history of Ovarian cancer Prostate cancer Diabetes Breast cancer Colorectal cancer Social History Smoking Status: Never smoker Second Hand Exposure: No; Do You Dip or Chew Tobacco: No; Tobacco Cessation Education Requested by Patient: No Hx Alcohol Use: No Hx Substance Use: No Preferred Language: Venezuelan Communication Ability: Effective Gas Plant Repairer Required: No Beliefs That Will Affect Care: None marital status: Current Living Situation: Spouse current occupational status: retired current occupation: customer service Other Information That Helps Us Care for You: No Feels Safe at Home: Yes Safety Concerns: Feels Safe At This Time Childhood Exposure to Second-Hand Smoke: Yes caffeine: Yes Dental Care, Regularly: Yes Physical Activity Frequency: 3-4 Times per Week Physical Activity Frequency Comment: lives in a 4 story house, walks alot of stairs Seatbelt Use: always Sunscreen Use: Yes Assistive Devices: Glasses Assistive Devices Comment: PARTIAL UPPER Review of Systems Review of Systems: All systems reviewed & are unremarkable except as noted in HPI & below Physical Exam Constitutional: WD/WN, vitals as above Respiratory: normal respiratory effort, lungs clear to auscultation Cardiovascular: RRR, no murmur, no edema Gastrointestinal (Abdomen): normal bowel sounds, soft, nontender, no hepatosplenomegaly Skin: no rashes, warm and dry Psychiatric: A+Ox3, euthymic affect Results & Data Results & Data ([facility]) Vital Signs (Past 12 Hours) Vital Signs Temp Pulse Pulse Resp BP Pulse Ox O2 Del Method 03/06/22 17:05 88 15 135/73 94 Nasal Cannula 03/06/22 16:55 80 16 140/75 94 Nasal Cannula 03/06/22 16:45 87 16 136/78 94 Nasal Cannula 03/06/22 16:35 83 14 135/71 93 Nasal Cannula 03/06/22 16:25 36.3 C L 86 15 140/79 93 Room Air 03/06/22 16:15 82 13 135/80 97 Oxymask 03/06/22 16:05 85 14 134/76 99 Oxymask 03/06/22 15:56 36.0 C L 86 16 133/79 99 Oxymask 03/06/22 12:00 36.8 C 90 20 121/82 94 Room Air O2 Flow Rate 03/06/22 17:05 2 03/06/22 16:55 2 03/06/22 16:45 2 03/06/22 16:35 2 03/06/22 16:25 03/06/22 16:15 4 03/06/22 16:05 6 03/06/22 15:56 6 03/06/22 12:00 PG Care Time/CCT Total # of Minutes Spent Total Time Spent with Patient: Total time spent is greater than 50% in coordination of care (as documented) at patient's floor/unit and/or counseling patient: Coding Level of Care Code INP/OBS CONSULT LVL 3, 45 MIN Diagnoses Status post reverse total arthroplasty of right shoulder Z96.611 Vitamin D deficiency E55.9 Gastroesophageal reflux disease K21.9 Esophagitis presence: esophagitis presence not specified Hypercholesterolemia E78.00 Hypertension I10 Hypertension type: primary hypertension Hypothyroidism E03.9 Hypothyroidism type: unspecified Vitamin B12 deficiency E53.8 (1) Hypothyroidism Hypothyroidism type: unspecified Qualified Code(s): E03.9 - Hypothyroidism, unspecified (2) Gastroesophageal reflux disease Esophagitis presence: esophagitis presence not specified Qualified Code(s): K21.9 - Gastro-esophageal reflux disease without esophagitis (3) Hypertension Hypertension type: primary hypertension Qualified Code(s): I10 - Essential (primary) hypertension
[2022-03-06] MEDS: DOCUSATE SODIUM 100 MG CAP PO SCH (20:42)
[2022-03-06] MEDS ORDERED: ATORVASTATIN 20 MG TAB PO SCH (21:00)
[2022-03-06] MEDS ORDERED: SENNA 8.6 MG TAB PO SCH (21:00)
[2022-03-06] MEDS: ACETAMINOPHEN 500 MG TAB PO SCH (22:46)
[2022-03-06] MEDS: ceFAZolin 2000MG 2,000 MG/15 ML SYR IV SCH (22:46)
[2022-03-07] MEDS: SODIUM CHLORIDE 0.9% 1000ML 1,000 ML IV SCH (04:43)
[2022-03-07] MEDS: ACETAMINOPHEN 500 MG TAB PO SCH (05:15)
[2022-03-07] MEDS: ceFAZolin 2000MG 2,000 MG/15 ML SYR IV SCH (05:15)
--- NOTE | 2022-03-07 07:19 | Orthopedic Progress Note ---
Date of Service March 07, 2022 Assessment & Plan (1) Status post reverse total arthroplasty of right shoulder: Plan: Postop day #1 right reverse total shoulder arthroplasty -PT/OT: No formal therapy. May do elbow wrist and hand motion, shrugs, pendulums -Pain management as written -DVT prophylaxis: SCDs, teds -A.m. labs are pending -Discharge planning: Plan on discharge home today after PT. Admission and Anticipated Discharge Date Admission Date: March 06, 2022 Subjective POD1 right reverse TSA. Doing well this morning. No current pain. No other complaints. Denies chest pain, sob, dizziness, SORENSEN, n/v/d. Review of Systems Review of Systems: All systems reviewed & are unremarkable except as noted in Subjective Physical Exam Physical Exam: Right shoulder: Sling in place. Dressing is clean, dry, intact. Fingers are mobile with good wrist extension. Good senior business architect strength. Distally neurovascular status and sensation grossly intact. Constitutional: WD/WN, vitals as above Results & Data ([facility]) Vital Signs (Past 12 Hours) Vital Signs Temp Pulse Resp BP Pulse Ox O2 Del Method 03/07/22 04:00 36.6 C 87 18 117/68 91 Room Air 03/06/22 23:00 36.6 C 81 18 114/73 90 Room Air 03/06/22 19:32 36.4 C L 95 H 18 120/71 90 Room Air
[2022-03-07 08:14] LABS: Basophils # (auto) 0.02 K/uL (0-0.2); Basophils % (auto) 0.2 %; Hematocrit (blood only) 31.7 % (34.1-44.9); Hemoglobin 10.6 g/dl (12.0-16.0); Immature Granulocytes # (auto) 0.04 K/uL (0.00-0.02); Immature Granulocytes % (auto) 0.4 %; Lymphocytes # (auto) 0.61 K/uL (1.2-3.4); Lymphocytes % (auto) 6.8 %; Mean Corpuscular Hgb Conc 33.4 g/dL (32.0-36.0); Mean Corpuscular Volume 89.8 fL (80.0-100.0); Mean Platelet Volume 9.1 fL (9.4-12.3); Monocytes # (auto) 0.47 K/uL (0.24-0.82); Monocytes % (auto) 5.2 %; Neutrophils # (auto) 7.84 K/uL (1.4-6.5); Neutrophils % (auto) 87.4 %; Platelet Count 176 K/uL (130-400); Red Blood Count 3.53 M/uL (3.93-5.22); White Blood Count 8.98 K/ul (4.8-10.8)
[2022-03-07] MEDS: DOCUSATE SODIUM 100 MG CAP PO SCH (08:40)
[2022-03-07] MEDS ORDERED: CHOLECALCIFEROL 1,000 UNITS 25 MCG TAB PO SCH (09:00)
[2022-03-07] MEDS ORDERED: PANTOprazole 40 MG TAB PO SCH (09:00)
[2022-03-07] MEDS ORDERED: MULTIVITAMIN TAB PO SCH (09:00)
[2022-03-07] MEDS ORDERED: LEVOTHYROXINE SODIUM 125 MCG TABLET PO SCH (09:00)
[2022-03-07] MEDS ORDERED: VALSARTAN 80 MG TAB PO SCH (09:00)
[2022-03-07] MEDS ORDERED: hydroCHLOROthiazide 25 MG TAB PO SCH (09:00)
[2022-03-07 09:08] LABS: BUN Creatinine Ratio 23.6 (10-20); Calcium 8.8 mg/dl (8.5-10.1); Creatinine Clr Calc Pharmacy 74.7 ml/min; Est GFR (African American) 92.3 ml/min; Est GFR (Non-African American) 79.7 ml/min; Potassium 3.9 mmol/L (3.5-5.1)
--- NOTE | 2022-03-07 10:44 | Discharge Summary ---
Date of Service March 07, 2022 Admission HPI Per Admitting Provider 81-year-old female with past medical history significant for hypertension, GERD, high cholesterol, hypothyroidism, osteopenia who presents with ongoing right shoulder pain. Pain is interfering with her daily activities. She has failed conservative measures including steroid injections. She would like to proceed with surgical invention. Patient denies headaches, sweats, fevers, chills, double vision, blurred vision, cough, sore throat, dysphagia, chest pain, sob, wheezing, n/v/d/c, numbness, tingling, fatigue, urinary symptoms, mood disorders. ROS positive for right shoulder pain and stiffness. Admission Exam Per Admitting Provider Constitutional: well developed and well nourished; no acute distress Eyes: PERRL, conjunctivae normal, anicteric sclerae ENMT: external ear and nose normal, oropharynx normal Neck: trachea midline, no thyromegaly Respiratory: normal respiratory effort, lungs clear to auscultation Cardiovascular: RRR, no murmur, no edema Musculoskeletal: Right shoulder: Positive impingement signs. Active range of motion to 170 degrees of forward flexion, 80 degrees of abduction, weakness and pain with strength testing. 4+/5 external rotation, 5/5 internal rotation, 4+/5 abduction. Tenderness anterolateral acromion. Skin: no rashes, warm and dry Neurologic: patellar DTR's 2+ bilat, sensation intact Psychiatric: A+Ox3, euthymic affect Principal Diagnosis Right shoulder rotator cuff arthropathy Discharge Exam Right shoulder: Sling in place. Dressing is clean, dry, intact. Fingers are mobile with good wrist extension. Good supervisor contact and service clerks strength. Distally neurovascular status and sensation grossly intact. Constitutional WD/WN, vitals as above Discharge Data Allergies Allergy/AdvReac Type Severity Reaction Status Date / Time No Known Drug Allergies Allergy Verified 03/06/22 11:54 Consultations 03/04/22 09:54 Consult Hospitalist Routine Procedures Performed Operation Date: 03/06/22 14:00 Actual Procedures p Right Reversed Total Shoulder Arthroplasty(Right) - Nacho Rdz MD Ordered Studies 03/06/22 05:00 US - OR guided needle placemen Routine Hospital Course (1) Status post reverse total arthroplasty of right shoulder: Postop day #1 right reverse total shoulder arthroplasty -PT/OT: No formal therapy. May do elbow wrist and hand motion, shrugs, pendulums -Pain management as written -DVT prophylaxis: SCDs, teds -A.m. labs are pending -Discharge planning: Plan on discharge home today after PT. Lab Results 03/06/22 03/07/22 03/07/22 Range/Units 11:46 07:47 07:47 WBC 8.98 (4.8-10.8) K/ul RBC 3.53 L (3.93-5.22) M/uL Hgb 10.6 L (12.0-16.0) g/dl Hct 31.7 L (34.1-44.9) % MCV 89.8 (80.0-100.0) fL MCH 30.0 (25.0-34.0) pg MCHC 33.4 (32.0-36.0) g/dL RDW Std Deviation 43.0 (36.4-46.3) fL RDW Coeff of Kiah 13.0 (11.5-14.5) % Plt Count 176 (130-400) K/uL MPV 9.1 L (9.4-12.3) fL Immature Gran % (Auto) 0.4 % Neut % (Auto) 87.4 % Lymph % (Auto) 6.8 % Dolores % (Auto) 5.2 % Eos % (Auto) 0.0 % Baso % (Auto) 0.2 % Neut # (Auto) 7.84 H (1.4-6.5) K/uL Lymph # (Auto) 0.61 L (1.2-3.4) K/uL Dolores # (Auto) 0.47 (0.24-0.82) K/uL Eos # (Auto) 0.00 (0-0.50) K/uL Baso # (Auto) 0.02 (0-0.2) K/uL Immature Gran # (Auto) 0.04 H (0.00-0.02) K/uL Sodium 135 L (136-145) mmol/L Potassium 3.9 (3.5-5.1) mmol/L Chloride 102 (98-107) mmol/L Carbon Dioxide 28 (21-32) mmol/L Anion Gap 5 (3-11) BUN 17 (6-23) mg/dl Creatinine 0.72 (0.6-1.2) mg/dl Est Cr Clr Drug Dosing 74.7 ml/min Est GFR ( Amer) 92.3 ml/min Est GFR (Non-Af Amer) 79.7 ml/min BUN/Creatinine Ratio 23.6 H (10-20) Glucose 122 H (70-99(Fasting)) mg/dl Calcium 8.8 (8.5-10.1) mg/dl SARS-CoV-2, RNA, NAAT NEGATIVE (NEGATIVE) Total Time Total Time Spent Total Time Spent (In Minutes): 20 Discharge Plan Discharge Items Patient Disposition: Home - Self-Care Reason For Visit: Right Shoulder Rotator Cuff Arthroplasty Discharge Diagnosis: Right shoulder rotator cuff arthropathy Activity: Per Instructions section Non-emergency contact: Surgeon Call non-emergency contact if: you have any medication questions, your pain is not controlled, your pain is concerning for you, you have a fever, your temperature is above 101, your wound has increased redness and your wound has increased drainage Follow-up/Referrals: Poornima Fontenot MD [Primary Care Provider] - Diet: Regular Addtl Attending Provider Instructions: ACTIVITY RECOMMENDATIONS: SELF CARE INSTRUCTIONS AFTER TOTAL SHOULDER ARTHROPLASTY REVERSE A. You may do daily exercises as taught in physical therapy while in hospital. No lifting with the operative arm. B. You are to wear your sling/immobilizer at all times EXCEPT when performing your daily exercises and for hygiene purposes. C. You may perform dry, daily dressing changes. Please keep your incision covered. You may shower 48 hours after surgery. Do not apply soap or any ointment/lotions directly over incision. Do not soak incision in bath tub/swimming pool. D. You may use ice as needed to operative shoulder. SPECIAL CARE INSTRUCTIONS: VERY IMPORTANT TO READ AND REVIEW A. There are a few signs you need to watch for after you are home. Call [facility] at [phone] if you experience any of the followin. Increased severe shoulder pain. Some pain is expected especially when you exercise. 2. Increased swelling in you shoulder or arm; pain or swelling in either upper extremity. 3. Any fluid drainage from the incision. 4. Shortness of breath or chest pain. B. Please call [facility] at [phone] if you have any questions or concerns about your operation or recovery. C. Call your physician if: 1. Temperature is greater than 101 degrees (F). 2. Pain is not relieved by prescribed pain medications. 3. Increase drainage or redness from incision. 4. Unanswered questions or concerns. FOLLOW UP VISIT: Please call [facility] at [phone] to schedule a follow up appointment with Dr. Rdz or his PA in 12-14 days from your surgery date. Stand-Alone Forms: [facility], Smoking Cessation Medications and DC Order Prescriptions: New acetaminophen [Tylenol Extra Strength] 500 mg Tablet 1,000 mg PO Q8 Qty: 60 0RF oxycodone 5 mg Tablet 5 - 10 mg PO .Q4h-6h MDD 6 PRN (Reason: pain) Qty: 30 0RF Rx Instructions: Ongoing therapy, Dr. Rdz supervising Continued atorvastatin 20 mg tablet 20 mg PO QPM Qty: 90 3RF zoledronic acid 4 mg/5 mL solution 5 mg IV .annually Qty: 6.25 5RF levothyroxine 125 mcg tablet 125 mcg PO QAM Rx Instructions: Name brand only omeprazole 20 mg capsule,delayed release(DR/EC) 20 mg PO QAM cholecalciferol (vitamin D3) 50 mcg (2,000 unit) capsule 50 mcg PO QAM cyanocobalamin (vitamin B-12) 2,000 mcg tablet 2,000 mcg PO QAM valsartan-hydrochlorothiazide [Diovan HCT] 160-25 mg tablet 1 tab PO QAM Discontinued acetaminophen [Tylenol Extra Strength] 500 mg tablet 500 mg PO Q6H PRN (Reason: Pain) celecoxib [Celebrex] 200 mg capsule 200 mg PO QAM Discharge Orders: Discharge Order (Routine); Ordered 03/07/22 Ordered By: Augustus Arshad Admission Data Admit Date/Time: 03/06/22 15:52 Attending Provider: Nacho Rdz Admit Provider: Nacho Rdz Primary Care Provider: Poornima Fontenot Other Providers: Yannick Prasad Natalie B.
== END 2022-03-07 13:16 | disposition home or self-care (01) | DRG 483 ==
LOC: ASU 11:20 → 3W 15:52